=== PATIENT | male | born 1935 | race Caucasian/White ===

== ENCOUNTER → 2016-09-06 | Outpatient (REF) | payer MEDICARE, BC ==
[~2016-09-06] MED LIST: ACET65TA OR; AMLO5TAB2 PO; ASPI325T; ASPI81TA51 PO; CARD180T PO; CIPR500T89 PO; CLAR1TAB2 PO; DIGO0.126 OR; DIGO5EL PO; FLAG500T PO; LASI40TA PO; LISI5TAB PO; LISIPOW PO; LOPR50TA PO; OMEGA 3 FISH OIL PO; PRED15SO PO; PRED1TA PO; PRED25TA PO; PRIL20CA PO; TYLE325T5 PO; WARF5VL PO; ZEST10TA4 PO; enbrel SC
[2016-09-06 21:46] LABS: BASO % 0.4 % (0.0-1.0); EOS % 0.3 % (0.0-3.0); LYMPH # 2.2 K/mm3 (1.5-4.5); LYMPH % 18.6 % (24.0-44.0); MEAN CORPUSCULAR HEMOGLOBIN 31.7 pg (27.0-33.0); MEAN CORPUSCULAR HGB CONC 32.8 g/dl (32.0-36.5); MEAN CORPUSCULAR VOLUME 96.7 fl (80.0-96.0); MONO # 0.4 K/mm3 (0.0-0.8); NEUTROPHILS # 8.1 K/mm3 (1.8-7.7); NEUTROPHILS % 74.8 % (36.0-66.0); RED CELL DISTRIBUTION WIDTH 13.8 % (11.5-14.5); WHITE BLOOD COUNT 10.8 K/mm3 (4.0-10.0)
[2016-09-06 21:58] LABS: ALBUMIN 4.1 GM/DL (3.2-5.2); ALT/SGPT 40 U/L (12-78); AST/SGOT 21 U/L (15-37); CREATININE FOR GFR 1.07 MG/DL (0.70-1.30); GLOMERULAR FILTRATION RATE > 60.0 (>35)
== END ==
LOC: M LABDRWAD 11:41
PROVIDERS: ATTEND Internal Medicine Rheumatology
DX: Z79.899 Other long term (current) drug therapy (principal)

== ENCOUNTER → 2016-10-18 | Outpatient (CLI) | payer MEDICARE, BC ==
--- NOTE | 2016-10-18 17:09 | REP ---
LEFT RIB SERIES: Four views of the left ribs performed and demonstrate no fracture or bone lesion. IMPRESSION: Negative left rib series. Signed by Bryan Amaya MD 10/20/2016 05:09 P
--- NOTE | 2016-10-18 17:11 | REP ---
CHEST, TWO VIEWS: Two views of the chest are performed and compared to prior exams dating back to 09/19/2013. There is mild bibasilar fibrotic scarring without evidence of acute infiltrate or pulmonary edema. The heart is normal in size and there is calcification of the thoracic aorta. The mediastinal silhouette is unchanged. Left dual lead pace maker is noted. There are diffuse degenerative changes of the spine. IMPRESSION: Stable chronic findings without evidence of acute pulmonary disease. Signed by Bryan Amaya MD 10/20/2016 05:09 P
== END ==
LOC: M ADAMS 13:17
PROVIDERS: ATTEND Internal Medicine Rheumatology
DX: M45.0 Ankylosing spondylitis of multiple sites in spine (principal)

== ENCOUNTER → 2016-11-01 | Outpatient (REF) | payer MEDICARE, BC ==
[2016-11-01 12:54] LABS: INR 1.88
== END ==
LOC: M LABDRWAD 12:23
PROVIDERS: ATTEND Dentist Oral and Maxillofacial Surgery
DX: Z51.81 Encounter for therapeutic drug level monitoring (principal); Z79.01 Long term (current) use of anticoagulants

== ENCOUNTER → 2016-11-20 | Outpatient (REF) | payer MEDICARE, BC | LOC: M LABDRWAD 12:25 | PROVIDERS: ATTEND Internal Medicine Rheumatology | DX: M45.0 Ankylosing spondylitis of multiple sites in spine (principal); M35.3 Polymyalgia rheumatica; Z79.899 Other long term (current) drug therapy ==

== ENCOUNTER → 2017-06-04 | Outpatient (CLI) | payer MEDICARE, BC ==
[2017-06-04 12:18] LABS: ALBUMIN 3.8 GM/DL (3.2-5.2); ALBUMIN/GLOBULIN RATIO 1.15 (1.00-1.93); ALKALINE PHOSPHATASE 66 U/L (45-117); ALT/SGPT 61 U/L (12-78); AST/SGOT 42 U/L (7-37); BILIRUBIN,DIRECT 0.1 MG/DL (0.0-0.2); BILIRUBIN,TOTAL 0.5 MG/DL (0.2-1.0); BLOOD UREA NITROGEN 21 MG/DL (7-18); GLOMERULAR FILTRATION RATE > 60.0 (>35); TOTAL PROTEIN 7.1 GM/DL (6.4-8.2)
== END ==
LOC: M SMT 09:27
PROVIDERS: ATTEND Internal Medicine Rheumatology
DX: Z51.81 Encounter for therapeutic drug level monitoring (principal); Z79.899 Other long term (current) drug therapy

== ENCOUNTER → 2017-11-05 | Outpatient (CLI) | payer MEDICARE, BC ==
[2017-11-05 14:02] LABS: BASO # 0.1 10^3/uL (0.0-0.2); BASO % 0.5 % (0.0-1.0); EOS # 0.1 10^3/uL (0.0-0.50); EOS % 0.9 % (0.0-3.0); HEMATOCRIT 42.8 % (42.0-52.0); HEMOGLOBIN 14.3 g/dl (13.5-17.5); IMMATURE GRANULOCYTE % 0.5 % (0-3.0); LYMPH # 1.9 10^3/uL (1.5-4.5); LYMPH % 20.1 % (24.0-44.0); MEAN CORPUSCULAR HEMOGLOBIN 31.4 pg (27.0-33.0); MEAN CORPUSCULAR HGB CONC 33.4 g/dl (32.0-36.5); MEAN CORPUSCULAR VOLUME 94.1 fl (80.0-96.0); MONO % 11.2 % (0.0-5.0); NEUTROPHILS # 6.2 10^3/uL (1.8-7.7); NEUTROPHILS % 66.8 % (36.0-66.0); PLATELET COUNT, AUTOMATED 333 10^3/uL (150-450); RED BLOOD COUNT 4.55 10^6/uL (4.30-6.10); RED CELL DISTRIBUTION WIDTH 14.6 % (11.5-14.5); WHITE BLOOD COUNT 9.3 10^3/uL (4.0-10.0)
[2017-11-05 14:19] LABS: ALBUMIN 4.1 GM/DL (3.2-5.2); ALT/SGPT 86 U/L (12-78); AST/SGOT 49 U/L (7-37); C REACTIVE PROTEIN QUANTITATIV < 0.30 MG/DL (0.00-0.30); CREATININE FOR GFR 0.92 MG/DL (0.70-1.30); GLOMERULAR FILTRATION RATE > 60.0 (>35)
[2017-11-05 14:43] LABS: ERYTHROCYTE SEDIMENTATION RATE 5 mm/hr (0-20)
== END ==
LOC: M SMT 10:33
DX: Z51.81 Encounter for therapeutic drug level monitoring (principal); Z79.899 Other long term (current) drug therapy; M45.0 Ankylosing spondylitis of multiple sites in spine; M35.3 Polymyalgia rheumatica; M35.09 Sjogren syndrome with other organ involvement
CPT/HCPCS: 84460

== ENCOUNTER → 2017-11-26 | Outpatient (CLI) | payer MEDICARE, BC ==
[2017-11-26 13:57] LABS: ALBUMIN 4.1 GM/DL (3.2-5.2); ALBUMIN/GLOBULIN RATIO 1.32 (1.00-1.93); ALKALINE PHOSPHATASE 65 U/L (45-117); ALT/SGPT 86 U/L (12-78); AST/SGOT 48 U/L (7-37); BILIRUBIN,DIRECT 0.2 MG/DL (0.0-0.2); BILIRUBIN,TOTAL 0.5 MG/DL (0.2-1.0); TOTAL PROTEIN 7.2 GM/DL (6.4-8.2)
== END ==
LOC: M SMT 09:20
DX: Z51.81 Encounter for therapeutic drug level monitoring (principal); Z79.899 Other long term (current) drug therapy
CPT/HCPCS: 80076

== ENCOUNTER → 2018-01-07 | Outpatient (CLI) | payer MEDICARE, BC ==
[2018-01-07 14:10] LABS: ALBUMIN 3.9 GM/DL (3.2-5.2); ALBUMIN/GLOBULIN RATIO 1.22 (1.00-1.93); ALKALINE PHOSPHATASE 63 U/L (45-117); ALT/SGPT 67 U/L (12-78); AST/SGOT 45 U/L (7-37); BILIRUBIN,DIRECT 0.2 MG/DL (0.0-0.2); BILIRUBIN,TOTAL 0.5 MG/DL (0.2-1.0); TOTAL PROTEIN 7.1 GM/DL (6.4-8.2)
== END ==
LOC: M SMT 11:00
DX: Z79.899 Other long term (current) drug therapy (principal)
CPT/HCPCS: 80076

== ENCOUNTER → 2018-02-06 | Outpatient (CLI) | payer MEDICARE, BC ==
[2018-02-06 10:25] LABS: INR 2.06; PARTIAL THROMBOPLASTIN TIME 29.7 SECONDS (25.4-37.6); PROTHROMBIN TIME 23.6 SECONDS (12.1-14.4)
== END ==
LOC: M SMT 07:56
DX: Z01.812 Encounter for preprocedural laboratory examination (principal); Z79.01 Long term (current) use of anticoagulants; Z79.02 Long term (current) use of antithrombotics/antiplatelets
CPT/HCPCS: 85610

== ENCOUNTER → 2018-03-06 | Outpatient (CLI) | payer MEDICARE, BC ==
[2018-03-06 10:35] LABS: INR 1.33; PROTHROMBIN TIME 16.7 SECONDS (12.1-14.4)
== END ==
LOC: M SMT 08:22
DX: Z51.81 Encounter for therapeutic drug level monitoring (principal); Z79.01 Long term (current) use of anticoagulants

== ENCOUNTER → 2018-03-06 | Outpatient (CLI) | payer MEDICARE, BC ==
[2018-03-06 10:27] LABS: BASO # 0.1 10^3/uL (0.0-0.2); BASO % 0.6 % (0.0-1.0); EOS # 0.1 10^3/uL (0.0-0.50); EOS % 0.7 % (0.0-3.0); HEMATOCRIT 42.2 % (42.0-52.0); HEMOGLOBIN 14.2 g/dl (13.5-17.5); IMMATURE GRANULOCYTE # 0.1 10^3/uL (0-0); IMMATURE GRANULOCYTE % 0.6 % (0-3.0); LYMPH % 22.7 % (24.0-44.0); MEAN CORPUSCULAR HEMOGLOBIN 31.8 pg (27.0-33.0); MEAN CORPUSCULAR HGB CONC 33.6 g/dl (32.0-36.5); MEAN CORPUSCULAR VOLUME 94.6 fl (80.0-96.0); MONO # 0.5 10^3/uL (0.0-0.8); MONO % 5.3 % (0.0-5.0); NEUTROPHILS # 6.1 10^3/uL (1.8-7.7); NEUTROPHILS % 70.1 % (36.0-66.0); PLATELET COUNT, AUTOMATED 330 10^3/uL (150-450); RED BLOOD COUNT 4.46 10^6/uL (4.30-6.10); RED CELL DISTRIBUTION WIDTH 14.2 % (11.5-14.5); WHITE BLOOD COUNT 8.7 10^3/uL (4.0-10.0)
[2018-03-06 10:57] LABS: ALBUMIN 3.9 GM/DL (3.2-5.2); ALT/SGPT 59 U/L (12-78); AST/SGOT 39 U/L (7-37); C REACTIVE PROTEIN QUANTITATIV < 0.30 MG/DL (0.00-0.30); CREATININE FOR GFR 0.98 MG/DL (0.70-1.30); GLOMERULAR FILTRATION RATE > 60.0 (>35)
[2018-03-06 11:01] LABS: ERYTHROCYTE SEDIMENTATION RATE 4 mm/hr (0-20)
== END ==
LOC: M SMT 08:26
DX: M45.0 Ankylosing spondylitis of multiple sites in spine (principal); M35.3 Polymyalgia rheumatica; Z51.81 Encounter for therapeutic drug level monitoring; Z79.01 Long term (current) use of anticoagulants; Z79.899 Other long term (current) drug therapy
CPT/HCPCS: 84460

== ENCOUNTER → 2018-03-12 | Outpatient (CLI) | payer MEDICARE, BC ==
[2018-03-12 13:57] LABS: DIGOXIN LEVEL 1.7 NG/ML (0.5-2.0)
== END ==
LOC: M SMT 10:08
DX: Z79.899 Other long term (current) drug therapy (principal)
CPT/HCPCS: 80162

== ENCOUNTER 2018-04-25 13:22 | Observation (INO) | payer MEDICARE, BC ==
[2018-04-25] MEDS: **hydrALAZINE HCL** 25 MG TAB PO ×4 (14:00→22:00)
[2018-04-25 14:56] LABS: VENOUS BASE EXCESS 0.7 (-2.0-2.0); VENOUS HCO3 26.8 MEQ/L (23.0-27.0); VENOUS O2 SATURATION 63.5 % (60.0-80.0); VENOUS PARTIAL PRESSURE CO2 48.6 mmHg (38.0-50.0); VENOUS PARTIAL PRESSURE O2 32.4 mmHg (30.0-50.0); VENOUS STANDARD HCO3 24.3 MEQ/L; VENOUS TOTAL CO2 28.3 MEQ/L (24.0-28.0)
[2018-04-25 15:02] LABS: KETONE, URINE AUTO RFX NEGATIVE (NEGATIVE); LEUKOCYTE ESTERASE UR AUTO RFX NEGATIVE (NEGATIVE); MUCUS, URINE RFX SMALL (NEGATIVE); NITRITE, URINE AUTO RFX NEGATIVE (NEGATIVE); RBC, URINE AUTO RFX 2 /HPF (0-3); SPECIFIC GRAVITY UR AUTO RFX 1.017 (1.002-1.035); SQUAM EPITHELIAL CELL UR AURFX 0 /HPF (0-6); WBC, URINE AUTO RFX 1 /HPF (0-3)
[2018-04-25 15:07] LABS: AMMONIA 18 uMOL/L (<32)
[2018-04-25 15:13] LABS: LACTIC ACID SEPSIS PROTOCOL 2.8 MMOL/L (0.4-2.0)
[2018-04-25 15:36] LABS: BASO # 0.1 10^3/uL (0.0-0.2); BASO % 0.6 % (0.0-1.0); EOS % 0.2 % (0.0-3.0); HEMATOCRIT 42.6 % (42.0-52.0); HEMOGLOBIN 14.1 g/dl (13.5-17.5); IMMATURE GRANULOCYTE % 1.9 % (0-3.0); LYMPH # 1.6 10^3/uL (1.5-4.5); LYMPH % 13.8 % (24.0-44.0); MEAN CORPUSCULAR HEMOGLOBIN 32.3 pg (27.0-33.0); MEAN CORPUSCULAR HGB CONC 33.1 g/dl (32.0-36.5); MEAN CORPUSCULAR VOLUME 97.5 fl (80.0-96.0); MONO # 0.6 10^3/uL (0.0-0.8); MONO % 5.3 % (0.0-5.0); NEUTROPHILS # 8.9 10^3/uL (1.8-7.7); NEUTROPHILS % 78.2 % (36.0-66.0); PLATELET COUNT, AUTOMATED 315 10^3/uL (150-450); RED BLOOD COUNT 4.37 10^6/uL (4.30-6.10); RED CELL DISTRIBUTION WIDTH 14.6 % (11.5-14.5); WHITE BLOOD COUNT 11.4 10^3/uL (4.0-10.0)
[2018-04-25 15:53] LABS: ALBUMIN 3.6 GM/DL (3.2-5.2); ALBUMIN/GLOBULIN RATIO 1.24 (1.00-1.93); ALKALINE PHOSPHATASE 59 U/L (45-117); ALT/SGPT 63 U/L (12-78); ANION GAP 8 MEQ/L (8-16); AST/SGOT 40 U/L (7-37); BILIRUBIN,DIRECT 0.1 MG/DL (0.0-0.2); BILIRUBIN,TOTAL 0.5 MG/DL (0.2-1.0); BLOOD UREA NITROGEN 22 MG/DL (7-18); CALCIUM LEVEL 9.5 MG/DL (8.8-10.2); CARBON DIOXIDE LEVEL 28 MEQ/L (21-32); CHLORIDE LEVEL 102 MEQ/L (98-107); CPK CREATINE PHOSPHOKINASE 73 U/L (39-308); CREATININE FOR GFR 1.36 MG/DL (0.70-1.30); GLOMERULAR FILTRATION RATE 53.3 (>35); GLUCOSE, FASTING 176 MG/DL (70-100); MB/CK RELATIVE INDEX 6.85 (< OR =4); POTASSIUM SERUM 4.5 MEQ/L (3.5-5.1); SODIUM LEVEL 138 MEQ/L (136-145); TOTAL PROTEIN 6.5 GM/DL (6.4-8.2); TROPONIN I 0.02 NG/ML (< 0.10)
[2018-04-25] MEDS: NS 1,000 ML IV ×4 (16:09→17:45)
[2018-04-25 16:21] LABS: PROTHROMBIN TIME 30.1 SECONDS (12.1-14.4)
[2018-04-25 16:42] LABS: DIGOXIN LEVEL 1.5 NG/ML (0.5-2.0)
[2018-04-25 16:48] LABS: ERYTHROCYTE SEDIMENTATION RATE 5 mm/hr (0-20)
[2018-04-25] MEDS ORDERED: PILL CRUSHER/CUTTER 1 EACH XX ×2 (17:30)
[2018-04-25] MEDS: ASPIRIN 325 MG TAB PO ×2 (17:30)
[2018-04-25 21:01] LABS: C REACTIVE PROTEIN QUANTITATIV < 0.30 MG/DL (0.00-0.30)
[2018-04-25] MEDS: SODIUM CHLORIDE 0.9% 1000ML IV ×2 (21:58)
[2018-04-25] MEDS: DIGOXIN INJ 0.5 MG/2 ML AMP (J1160) IV ×2 (21:59)
[2018-04-25] MEDS ORDERED: HEPARIN SOD (PORCINE) 5000 UNITS/ML VIAL SC ×2 (22:00)
[2018-04-25] MEDS: ACETAMINOPHEN TAB 650MG DOSE (2X325MG) PO ×2 (22:00)
[2018-04-25] MEDS: OMEPRAZOLE 20 MG CAP PO ×2 (22:01)
[2018-04-25] MEDS: FOLIC ACID 1 MG TAB PO ×2 (22:01)
[2018-04-25] MEDS: predniSONE 10 MG TAB PO ×2 (22:01)
[2018-04-26 01:22] LABS: LACTIC ACID SEPSIS PROTOCOL 2.3 MMOL/L (0.4-2.0)
[2018-04-26 04:47] LABS: HEMATOCRIT 38.1 % (42.0-52.0); HEMOGLOBIN 12.6 g/dl (13.5-17.5); MEAN CORPUSCULAR HEMOGLOBIN 32.1 pg (27.0-33.0); MEAN CORPUSCULAR HGB CONC 33.1 g/dl (32.0-36.5); MEAN CORPUSCULAR VOLUME 96.9 fl (80.0-96.0); PLATELET COUNT, AUTOMATED 244 10^3/uL (150-450); RED BLOOD COUNT 3.93 10^6/uL (4.30-6.10); RED CELL DISTRIBUTION WIDTH 14.5 % (11.5-14.5); WHITE BLOOD COUNT 8.8 10^3/uL (4.0-10.0)
[2018-04-26 05:16] LABS: ANION GAP 6 MEQ/L (8-16); BLOOD UREA NITROGEN 17 MG/DL (7-18); CALCIUM LEVEL 8.6 MG/DL (8.8-10.2); CARBON DIOXIDE LEVEL 25 MEQ/L (21-32); CHLORIDE LEVEL 110 MEQ/L (98-107); CHOLESTEROL LEVEL 219 MG/DL (<200); CHOLESTEROL RISK RATIO 4.469 (<5); CREATININE FOR GFR 0.96 MG/DL (0.70-1.30); GLOMERULAR FILTRATION RATE > 60.0 (>35); GLUCOSE, FASTING 155 MG/DL (70-100); HDL CHOLESTEROL 49 MG/DL (>40); LDL CHOLESTEROL 129 MG/DL (<100); MAGNESIUM LEVEL 2.1 MG/DL (1.8-2.4); NON-HDL-C 170 MG/DL; POTASSIUM SERUM 4.9 MEQ/L (3.5-5.1); SODIUM LEVEL 141 MEQ/L (136-145); TRIGLYCERIDES LEVEL 205 MG/DL (<150)
[2018-04-26] MEDS ORDERED: NS 1,000 ML IV ×2 (05:45)
[2018-04-26] MEDS: **hydrALAZINE HCL** 25 MG TAB PO ×2 (06:00)
[2018-04-26] MEDS: ASCORBIC ACID 500 MG TAB PO ×2 (08:04)
[2018-04-26] MEDS: MAGNESIUM OXIDE 400 MG TAB (MAG-OX) PO ×2 (08:05)
[2018-04-26] MEDS: LISINOPRIL 10 MG TAB PO ×4 (08:05→21:40)
[2018-04-26] MEDS: DIGOXIN 0.125 MG TAB PO ×4 (08:05→21:38)
[2018-04-26] MEDS: predniSONE 5 MG TAB PO ×2 (08:05)
[2018-04-26] MEDS: CYANOCOBALAMIN 500 MCG TAB PO ×2 (08:06)
[2018-04-26] MEDS: VITAMIN D 1,000 INTERNATIONAL UNITS TABLET PO ×2 (08:06)
[2018-04-26] MEDS: FOLIC ACID 1 MG TAB PO ×4 (08:06→21:38)
[2018-04-26 08:28] LABS: INR 2.61; PROTHROMBIN TIME 28.5 SECONDS (12.1-14.4)
[2018-04-26] MEDS ORDERED: ISOVUE-370 76% 100ML VIAL (Q9967) As Ordered ×2 (10:41)
[2018-04-26] MEDS: NS 1,000 ML IV ×2 (11:52)
[2018-04-26] MEDS: WARFARIN SOD 2.5 MG TAB PO ×2 (17:12)
[2018-04-26] MEDS: predniSONE 10 MG TAB PO ×2 (21:37)
[2018-04-26] MEDS: OMEPRAZOLE 20 MG CAP PO ×2 (21:38)
[2018-04-27 05:37] LABS: HEMATOCRIT 37.5 % (42.0-52.0); HEMOGLOBIN 12.3 g/dl (13.5-17.5); MEAN CORPUSCULAR HGB CONC 32.8 g/dl (32.0-36.5); MEAN CORPUSCULAR VOLUME 97.7 fl (80.0-96.0); PLATELET COUNT, AUTOMATED 249 10^3/uL (150-450); RED BLOOD COUNT 3.84 10^6/uL (4.30-6.10); RED CELL DISTRIBUTION WIDTH 14.9 % (11.5-14.5); WHITE BLOOD COUNT 8.5 10^3/uL (4.0-10.0)
[2018-04-27 05:44] LABS: INR 2.15; PROTHROMBIN TIME 24.4 SECONDS (12.1-14.4)
[2018-04-27 06:41] LABS: ANION GAP 7 MEQ/L (8-16); BLOOD UREA NITROGEN 22 MG/DL (7-18); CALCIUM LEVEL 9.1 MG/DL (8.8-10.2); CARBON DIOXIDE LEVEL 26 MEQ/L (21-32); CHLORIDE LEVEL 110 MEQ/L (98-107); CREATININE FOR GFR 1.04 MG/DL (0.70-1.30); GLOMERULAR FILTRATION RATE > 60.0 (>35); GLUCOSE, FASTING 151 MG/DL (70-100); POTASSIUM SERUM 4.5 MEQ/L (3.5-5.1); SODIUM LEVEL 143 MEQ/L (136-145)
[2018-04-27] MEDS: VITAMIN D 1,000 INTERNATIONAL UNITS TABLET PO ×2 (09:38)
[2018-04-27] MEDS: FOLIC ACID 1 MG TAB PO ×2 (09:39)
[2018-04-27] MEDS: LISINOPRIL 10 MG TAB PO ×2 (09:39)
[2018-04-27] MEDS: ASCORBIC ACID 500 MG TAB PO ×2 (09:39)
[2018-04-27] MEDS: MAGNESIUM OXIDE 400 MG TAB (MAG-OX) PO ×2 (09:39)
[2018-04-27] MEDS: DIGOXIN 0.125 MG TAB PO ×2 (09:39)
[2018-04-27] MEDS: predniSONE 5 MG TAB PO ×2 (09:40)
[2018-04-27] MEDS: CYANOCOBALAMIN 500 MCG TAB PO ×2 (09:40)
== END 2018-04-27 14:45 | disposition home or self-care (01) ==
LOC: M ED 13:22 → M ED INP 16:53 → M PCU 20:46
DX: R41.82 Altered mental status, unspecified (principal); G45.4 Transient global amnesia; M35.3 Polymyalgia rheumatica; N17.9 Acute kidney failure, unspecified; I25.10 Atherosclerotic heart disease of native coronary artery without angina pectoris; E78.5 Hyperlipidemia, unspecified; K21.9 Gastro-esophageal reflux disease without esophagitis; I10 Essential (primary) hypertension; I67.82 Cerebral ischemia; R74.0 Nonspecific elevation of levels of transaminase and lactic acid dehydrogenase [LDH]; Z86.711 Personal history of pulmonary embolism; Z86.718 Personal history of other venous thrombosis and embolism; Z95.5 Presence of coronary angioplasty implant and graft; Z95.0 Presence of cardiac pacemaker; Z85.46 Personal history of malignant neoplasm of prostate; M45.9 Ankylosing spondylitis of unspecified sites in spine; M19.90 Unspecified osteoarthritis, unspecified site; I48.91 Unspecified atrial fibrillation; Z88.8 Allergy status to other drugs, medicaments and biological substances; Z88.5 Allergy status to narcotic agent; Z79.899 Other long term (current) drug therapy; Z79.52 Long term (current) use of systemic steroids; Z79.01 Long term (current) use of anticoagulants
CPT/HCPCS: Q9967

== ENCOUNTER → 2018-05-07 | Outpatient (REF) | payer MEDICARE, BC ==
[2018-05-07 18:14] LABS: FREE T4 1.06 NG/DL (0.76-1.46); FREE THYROXINE INDEX 2.8 % (1.4-3.8); RHEUMATOID FACTOR QUANT < 10.0 IU/ML (<15.0); T UPTAKE 31 % (33-40); TOTAL PROTEIN 7.4 GM/DL (6.4-8.2)
[2018-05-07 18:15] LABS: FOLATE > 24.0 NG/ML; VITAMIN B12 LEVEL 779 PG/ML
[2018-05-07 19:05] LABS: ERYTHROCYTE SEDIMENTATION RATE 8 mm/hr (0-20)
[2018-05-07 19:09] LABS: ESTIMATED AVERAGE GLUCOSE 137 MG/DL (60-110); HEMOGLOBIN A1c 6.4 %
[2018-05-08 08:11] LABS: ALBUMIN 4.57 GM/DL (3.29-5.55); ALBUMIN % 61.7 % (55.8-66.1); ALPHA-1-GLOBULIN % 4.4 % (2.9-4.9); ALPHA-1-GLOBULINS 0.33 GM/DL (0.17-0.41); ALPHA-2-GLOBULINS 0.85 GM/DL (0.42-0.99); ALPHA-2-GLOBULINS % 11.5 % (7.1-11.8); BETA-1-GLOBULINS 0.46 GM/DL (0.28-0.60); BETA-1-GLOBULINS % 6.2 % (4.7-7.2); BETA-2-GLOBULINS 0.41 GM/DL (0.19-0.55); BETA-2-GLOBULINS % 5.5 % (3.2-6.5); GAMMA GLOBULIN % 10.7 % (11.1-18.8); GAMMA GLOBULINS 0.79 GM/DL (0.65-1.58)
[2018-05-13 10:08] LABS: ANTINUCLEAR ANTIBODIES DIRECT Negative (Negative); Methylmalonic Acid 170 nmol/L (0-378); SJOGREN'S ANTI SS-A <0.2 AI (0.0-0.9); SJOGREN'S ANTI SS-B <0.2 AI (0.0-0.9); VITAMIN B1 LEVEL WHOLE BLOOD 155.4 nmol/L (66.5-200.0); VITAMIN B6,PYRIDOXAL PHOSPHATE 4.9 ug/L (5.3-46.7); VITAMIN E(ALPHA TOCOPHEROL) 14.9 mg/L (9.0-29.0); VITAMIN E(GAMMA TOCOPHEROL) 2.1 mg/L (0.5-4.9)
== END ==
LOC: M LABNEURO 11:42
DX: E11.9 Type 2 diabetes mellitus without complications (principal); E07.9 Disorder of thyroid, unspecified
CPT/HCPCS: 82746

== ENCOUNTER → 2018-10-23 | Outpatient (CLI) | payer MEDICARE, BC ==
[~2018-10-23] MED LIST changes: +ASCO500T PO; +B-12100010 PO; +COUM1TAB17 PO; +CYCL5TAB PO; +DIGO0.12 PO; +FIBE625T PO; +FOLI800C PO; +GENT1SOL16 OU; +HUMI20IN SC; +HUMI20KI SC; +HUMI40IN SC; +HUMI40KI2 SC; +LISI10TA4 PO; +MAGN1TAB26 PO; +MAGN400C PO; +METH2.5T48 PO; +OMEP20CA3 PO; +PRED5TA PO; +VITA100018 PO; +VITA200038 PO; +VITA400T PO; +WARF-18 PO
== END ==
LOC: M SMT 09:56
DX: M35.3 Polymyalgia rheumatica (principal)

== ENCOUNTER 2019-01-30 23:35 | Emergency (ER) | payer MEDICARE, BC ==
[~2019-01-30] VITALS: Ht 175.3 cm; Wt 84.1 kg
[~2019-01-30 23:35] MED LIST changes: -OMEP20CA3 PO; +OMEP20CA4 PO
[2019-01-31] MEDS ORDERED: NS 1,000 ML IV ONE (00:15)
[2019-01-31 01:38] LABS: BASO # 0.1 10^3/uL (0.0-0.2); BASO % 0.5 % (0.0-1.0); EOS % 0.1 % (0.0-3.0); HEMATOCRIT 36.2 % (42.0-52.0); HEMOGLOBIN 12.2 g/dl (13.5-17.5); LYMPH # 1.4 10^3/uL (1.5-4.5); LYMPH % 15.3 % (24.0-44.0); MEAN CORPUSCULAR HEMOGLOBIN 31.5 pg (27.0-33.0); MEAN CORPUSCULAR HGB CONC 33.7 g/dl (32.0-36.5); MEAN CORPUSCULAR VOLUME 93.5 fl (80.0-96.0); MONO # 0.5 10^3/uL (0.0-0.8); MONO % 5.8 % (0.0-5.0); NEUTROPHILS # 7.1 10^3/uL (1.8-7.7); NEUTROPHILS % 77.2 % (36.0-66.0); PLATELET COUNT, AUTOMATED 278 10^3/uL (150-450); RED BLOOD COUNT 3.87 10^6/uL (4.30-6.10); WHITE BLOOD COUNT 9.2 10^3/uL (4.0-10.0)
[2019-01-31 01:52] LABS: PROTHROMBIN TIME 22.5 SECONDS (11.8-14.0)
--- NOTE | 2019-01-31 01:52 | REPVR ---
EXAM: CT Head Without Contrast EXAM DATE/TIME: 01/31/2019 12:35 AM CLINICAL HISTORY: 83 years old, male; Syncope and collapse TECHNIQUE: Imaging protocol: Computed tomography images of the head without contrast. Radiation optimization: All CT scans at this facility use at least one of these dose optimization techniques: automated exposure control; mA and/or kV adjustment per patient size (includes targeted exams where dose is matched to clinical indication); or iterative reconstruction. COMPARISON: CT Head without contrast 04/26/2018 11:06 AM FINDINGS: Brain: No acute intracranial hemorrhage or mass effect. No discrete geographic area of hypoattenuation to suggest large vessel territorial infarct identified at this time. Moderately advanced generalized involutional and deep white matter microvascular ischemic changes. Ventricles: Mild dilatation which is consistent with degree of volume loss. Bones/joints: No acute fracture. Sinuses: Visualized sinuses are unremarkable. No fluid levels. Mastoid air cells: Visualized mastoid air cells are well aerated. No mastoid effusion. Soft tissues: Grossly stable appearance of mucosal thickening and soft tissue densities in the nasal passage most consistent with polyps. Vasculature: Cerebrovascular calcifications noted. IMPRESSION: No acute intracranial abnormality. Other findings, as above, appear relatively stable when compared to prior study. Electronically signed by: Alton Lo On 01/31/2019 01:52:52 AM
[2019-01-31 01:53] LABS: PARTIAL THROMBOPLASTIN TIME 26.9 SECONDS (25.0-38.4)
[2019-01-31 03:06] LABS: BLOOD UREA NITROGEN 26 MG/DL (7-18); CREATININE FOR GFR 1.07 MG/DL (0.70-1.30); GLOMERULAR FILTRATION RATE > 60.0 (>35); GLUCOSE, FASTING 148 MG/DL (70-100)
[2019-01-31 03:07] LABS: CALCIUM LEVEL 9.3 MG/DL (8.8-10.2); CARBON DIOXIDE LEVEL 25 MEQ/L (21-32); CHLORIDE LEVEL 108 MEQ/L (98-107); POTASSIUM SERUM 4.5 MEQ/L (3.5-5.1); SODIUM LEVEL 142 MEQ/L (136-145)
[2019-01-31 03:08] LABS: CK-MB VALUE MASS 3.4 NG/ML (<3.6); CPK CREATINE PHOSPHOKINASE 169 U/L (39-308); MB/CK RELATIVE INDEX 2.01 (< OR =4)
[2019-01-31 03:09] LABS: DIGOXIN LEVEL 2.2 NG/ML (0.5-2.0); MAGNESIUM LEVEL 2.3 MG/DL (1.8-2.4); TROPONIN I 0.03 NG/ML (< 0.10)
[2019-01-31 05:48] VITALS: BP 156/81
--- NOTE | 2019-01-31 07:20 | ECGEPIP ---
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
== END 2019-01-31 05:55 | disposition home or self-care (01) ==
LOC: M ED 23:35
DX: E86.0 Dehydration (principal); Z95.0 Presence of cardiac pacemaker; Z79.01 Long term (current) use of anticoagulants; Z79.899 Other long term (current) drug therapy; Z88.8 Allergy status to other drugs, medicaments and biological substances; Z88.5 Allergy status to narcotic agent

== ENCOUNTER → 2019-03-22 | Outpatient (CLI) | payer MEDICARE, BC ==
--- NOTE | 2019-03-24 12:03 | REP ---
CT LUMBAR SPINE WITHOUT CONTRAST: HISTORY: Spondylosis in the lumbar region. Low back pain and paresthesias of the skin. Comparison is made with images from January 14, 2016 CT abdomen and pelvis. CT FINDINGS: There is diffuse osteopenia. Lumbar vertebral body heights are preserved. There is calcification of the anterior longitudinal ligament with bridging syndesmophytes in the lumbar spine at each level above the L3-4. There is some bridging osteophytes involving the posterior elements as well. The sacroiliac joints are fused and the findings are compatible with ankylosing spondylitis. Rigid spine. There is diffuse osteoporosis. Lumbar vertebral body heights are preserved. There is no evidence of spondylolysis. There is mild discogenic spurring and vacuum phenomenon at the L4-5 disc space. There is diffuse disc bulging at L4-5. This combined with ligamentum flavum hypertrophy and facet hypertrophy produces moderate central canal stenosis at the L4-5 level. There is foraminal encroachment due to facet hypertrophy and disc bulging bilaterally at L4-5. At L5-S1, there is minimal diffuse disc bulging. Moderate facet hypertrophy is present bilaterally. There is mild right-sided foraminal encroachment due to facet hypertrophy. At L3-4, there is some facet and mild ligamentum flavum hypertrophy. Borderline canal size. No foraminal encroachment is seen. At L2-3 and L1-2 there is no disc abnormality. IMPRESSION: Findings consistent with ankylosing spondylitis of the lumbar spine with ankylosis of each disc level above the L4 vertebral body. SI joints are ankylosed. There is degenerative disc and facet disease at L4-5 and there is moderate central canal stenosis at L4-5 due to diffuse disc bulging, ligamentum flavum hypertrophy, and facet hypertrophy. There is foraminal narrowing bilaterally at L4-5 and on the right at the L5-S1. Electronically Signed by Dwayne Lee MD 03/24/2019 03:04 P
== END ==
LOC: M RAD 10:19
PROVIDERS: ATTEND Psychiatry & Neurology Neurology
DX: M54.5 Low back pain (principal)

== ENCOUNTER → 2019-07-31 | Outpatient (CLI) | payer MEDICARE, BC ==
[~2019-07-31] MED LIST changes: -DIGO0.12 PO; +DIGO0.123 PO; +OMEP1CAP73 PO; -OMEP20CA4 PO
[2019-07-31 10:02] LABS: BASO # 0.1 10^3/uL (0.0-0.2); BASO % 0.6 % (0.0-1.0); EOS # 0.1 10^3/uL (0.0-0.5); EOS % 0.5 % (0.0-3.0); HEMATOCRIT 47.2 % (42.0-52.0); HEMOGLOBIN 14.9 g/dl (13.5-17.5); LYMPH % 18.5 % (24.0-44.0); MEAN CORPUSCULAR HEMOGLOBIN 30.7 pg (27.0-33.0); MEAN CORPUSCULAR HGB CONC 31.6 g/dl (32.0-36.5); MEAN CORPUSCULAR VOLUME 97.3 fl (80.0-96.0); MONO # 0.5 10^3/uL (0.0-0.8); MONO % 4.7 % (0.0-5.0); NEUTROPHILS # 8.1 10^3/uL (1.5-8.5); PLATELET COUNT, AUTOMATED 326 10^3/uL (150-450); RED BLOOD COUNT 4.85 10^6/uL (4.30-6.10); WHITE BLOOD COUNT 10.8 10^3/uL (4.0-10.0)
[2019-07-31 10:27] LABS: ALBUMIN 4.2 GM/DL (3.2-5.2); ALT/SGPT 54 U/L (12-78); C REACTIVE PROTEIN QUANTITATIV < 0.30 MG/DL (0.00-0.30); CREATININE FOR GFR 0.91 MG/DL (0.70-1.30); ERYTHROCYTE SEDIMENTATION RATE 4 mm/hr (0-20); GLOMERULAR FILTRATION RATE > 60.0 (>35)
== END ==
LOC: M PLALAB 08:26
PROVIDERS: ATTEND Internal Medicine Rheumatology
DX: Z51.81 Encounter for therapeutic drug level monitoring (principal); Z79.899 Other long term (current) drug therapy; M45.0 Ankylosing spondylitis of multiple sites in spine; M35.3 Polymyalgia rheumatica; M13.0 Polyarthritis, unspecified; Z79.52 Long term (current) use of systemic steroids

== ENCOUNTER 2019-11-22 02:48 | Emergency (ER) | payer MEDICARE, BC ==
[~2019-11-22] VITALS: Ht 175.3 cm; Wt 81.2 kg
[2019-11-22 03:35] LABS: BASO # 0.1 10^3/uL (0.0-0.2); BASO % 0.8 % (0.0-1.0); EOS % 0.3 % (0.0-3.0); HEMATOCRIT 42.8 % (42.0-52.0); HEMOGLOBIN 13.9 g/dl (13.5-17.5); LYMPH # 2.7 10^3/uL (1.5-5.0); LYMPH % 31.5 % (24.0-44.0); MEAN CORPUSCULAR HEMOGLOBIN 30.9 pg (27.0-33.0); MEAN CORPUSCULAR HGB CONC 32.5 g/dl (32.0-36.5); MEAN CORPUSCULAR VOLUME 95.1 fl (80.0-96.0); MONO # 0.8 10^3/uL (0.0-0.8); MONO % 9.1 % (0.0-5.0); NEUTROPHILS % 57.8 % (36.0-66.0); PLATELET COUNT, AUTOMATED 284 10^3/uL (150-450); WHITE BLOOD COUNT 8.7 10^3/uL (4.0-10.0)
[2019-11-22 03:46] LABS: INR 2.02; PARTIAL THROMBOPLASTIN TIME 27.3 SECONDS (25.0-38.4); PROTHROMBIN TIME 22.6 SECONDS (11.8-14.0)
[2019-11-22 04:05] LABS: BILIRUBIN,DIRECT 0.1 MG/DL (0.0-0.2); BILIRUBIN,TOTAL 0.6 MG/DL (0.2-1.0); CALCIUM LEVEL 9.4 MG/DL (8.8-10.2); CREATININE FOR GFR 1.4 MG/DL (0.70-1.30); GLOMERULAR FILTRATION RATE 51.3 (>35); POTASSIUM SERUM 4.2 MEQ/L (3.5-5.1)
[2019-11-22] MEDS ORDERED: NS 500 ML IV ONE (04:15)
[2019-11-22] MEDS ORDERED: ISOVUE-370 76% 100ML VIAL As Ordered ONE (04:16)
--- NOTE | 2019-11-22 05:16 | REPVR ---
PROCEDURE INFORMATION: Exam: CT Abdomen And Pelvis With Contrast Exam date and time: 11/22/2019 4:06 AM Age: 84 years old Clinical indication: Abdominal pain; Generalized; Prior surgery; Surgery date: 6+ months; Surgery type: Prostatectomy; Additional info: Generalized abd pain/hematuria TECHNIQUE: Imaging protocol: Computed tomography of the abdomen and pelvis with intravenous contrast. Radiation optimization: All CT scans at this facility use at least one of these dose optimization techniques: automated exposure control; mA and/or kV adjustment per patient size (includes targeted exams where dose is matched to clinical indication); or iterative reconstruction. Contrast material: ISO; Contrast volume: 100 ml; Contrast route: AC; COMPARISON: CT ABD PELVIS W/O CONTRAST 01/14/2016 2:07 AM FINDINGS: Lungs: There is mild cylindrical bronchiectasis at the lung bases with atelectatic changes, left more than right. Liver: The liver is hypoattenuated. Gallbladder and bile ducts: The patient is status post cholecystectomy. Pancreas: The pancreatic duct is dilated measuring 5-6 mm with heterogeneous appearance of the pancreatic head. Spleen: Normal. No splenomegaly. Adrenals: Normal. No mass. Kidneys and ureters: There is a punctate 1-2 mm stone at the right UVJ with mild proximal hydronephrosis. There is a 2 mm right upper renal pole stone. There is 2-3 mm left lower renal pole stone. There is a 9 mm left lower renal pole cortical cyst. Stomach and bowel: There is sigmoid colon diverticulosis. The descending colon is under distended limiting its evaluation wall thickening. Appendix: No evidence of appendicitis. Intraperitoneal space: See "Soft tissues" finding. Vasculature: There is moderate aortic and iliac mural calcifications. Lymph nodes: Unremarkable. No enlarged lymph nodes. Bladder: Unremarkable as visualized. Reproductive: The patient is status post prostatectomy with no mass or fluid collection in the prostate bed. Bones/joints: There is marked diffuse bony osteopenia. There is marked diffuse lumbar spine facet arthrosis. Soft tissues: There is bilateral mild right more than left fat containing inguinal hernias. There appears to be some fluid in the right scrotal sac. IMPRESSION: 1. Punctate 1-2 mm right UVJ stone with mild proximal hydronephrosis. 2. Small bilateral renal stones. 3. 9 mm left lower renal pole simple appearing cyst. No follow-up is necessary. 4. Status post cholecystectomy and prostatectomy. 5. Heterogeneous pancreatic head with dilated pancreatic duct up to 6 mm. MRI of the pancreas without and with IV contrast is recommended to exclude underlying neoplastic process. 6. Sigmoid colon diverticulosis. 7. Small bilateral, right more than left fat containing inguinal hernias with small amount of fluid in the right scrotal sac/hydrocele. COMMENTS: Consistent with the [employer]'s Incidental Findings Committee white paper (J Am Kendall Radiol 2018): Any incidental renal lesion less than 1.0 cm or classified as too small to characterize, or any incidental cystic renal lesion characterized as simple-appearing, is likely benign. No follow-up imaging is recommended for these lesions per consensus recommendations based on imaging criteria. Electronically signed by: Perez Cabrera On 11/22/2019 05:15:46 AM
[2019-11-22] MEDS ORDERED: TAMSULOSIN 0.4 MG CAP PO ONE (05:30)
[2019-11-22] MEDS ORDERED: FLOM0.4C39 PO (05:30)
[2019-11-22] MEDS ORDERED: KETOROLAC 30 MG/ML 1ML VIAL IV ONE (05:30)
[2019-11-22 05:49] VITALS: BP 162/76
--- NOTE | 2019-11-22 06:34 | ED PDOC ---
Post-Departure Follow-Up [facility] FAXED FORMAL REPORT OF CT ABD/P FOR FU Brenda Queen MD Nov 22, 2019 06:34
== END 2019-11-22 05:51 | disposition home or self-care (01) ==
LOC: M ED 02:48
DX: N20.1 Calculus of ureter (principal); K86.9 Disease of pancreas, unspecified; I10 Essential (primary) hypertension; I48.91 Unspecified atrial fibrillation; K21.9 Gastro-esophageal reflux disease without esophagitis; E78.5 Hyperlipidemia, unspecified; M35.3 Polymyalgia rheumatica; M45.9 Ankylosing spondylitis of unspecified sites in spine; Z85.46 Personal history of malignant neoplasm of prostate; Z95.0 Presence of cardiac pacemaker; Z79.899 Other long term (current) drug therapy; Z79.01 Long term (current) use of anticoagulants; Z79.52 Long term (current) use of systemic steroids; Z88.8 Allergy status to other drugs, medicaments and biological substances; Z88.5 Allergy status to narcotic agent
CPT/HCPCS: 74177; 80048; 80076; 81001; 83690; 85025; 85610; 85730; 96374; 99284; J1885; Q9967

== ENCOUNTER → 2019-12-31 | Outpatient (CLI) | payer MEDICARE, BC ==
[~2019-12-31] MED LIST changes: +D31000TA2 PO; +DIGO0.253 PO; +ETAN50SY SC; +EZET10TA21 PO; +FLOM0.4C39 PO; +LISI-542 PO; +OXYC1TAB23 PO; +PILO1OPD OD; +PRED10TA2 PO
[2019-12-31 15:33] LABS: ALBUMIN 3.7 GM/DL (3.2-5.2); BILIRUBIN,DIRECT 0.1 MG/DL (0.0-0.2); BILIRUBIN,TOTAL 0.5 MG/DL (0.2-1.0); TOTAL PROTEIN 6.8 GM/DL (6.4-8.2)
[2020-01-02 11:45] LABS: CA19-9 TUMOR MARKER,CARBOHYDRA 17.8 U/ML (<35.0)
== END ==
LOC: M LAB 13:56
PROVIDERS: ATTEND Internal Medicine Gastroenterology
DX: R93.3 Abnormal findings on diagnostic imaging of other parts of digestive tract (principal); Z79.01 Long term (current) use of anticoagulants; Z79.899 Other long term (current) drug therapy

== ENCOUNTER 2020-01-10 22:50 | Emergency (ER) | payer MEDICARE, BC ==
[~2020-01-10 22:50] MED LIST changes: -D31000TA2 PO; -DIGO0.253 PO; -ETAN50SY SC; -EZET10TA21 PO; -LISI-542 PO; -OXYC1TAB23 PO; -PILO1OPD OD; -PRED10TA2 PO
[2020-01-10] MEDS ORDERED: MORPHINE 4 MG/ML 1ML VIAL/SYRINGE (J2270) As Ordered ONE (23:54)
[2020-01-11] MEDS ORDERED: TAMSULOSIN 0.4 MG CAP As Ordered ONE (01:17)
[2020-01-11] MEDS ORDERED: NORCO 5/325MG TABLET (BULK FOR ED) As Ordered ONE (01:17)
[2020-02-06 11:30] LABS: APPEARANCE, URINE CLOUDY (CLEAR); BACTERIA, URINE AUTO NEGATIVE (NEGATIVE); BILIRUBIN, URINE AUTO NEGATIVE (NEGATIVE); BLOOD, URINE BLOOD 3+ (NEGATIVE); CALCIUM OXALATE CRYSTALS LARGE; COLOR, URINE YELLOW (YELLOW); GLUCOSE, URINE (UA) AUTO NEGATIVE (NEGATIVE); KETONE, URINE AUTO NEGATIVE (NEGATIVE); LEUKOCYTE ESTERASE, URINE AUTO NEGATIVE (NEGATIVE); MUCUS, URINE SMALL (NEGATIVE); NITRITE, URINE AUTO NEGATIVE (NEGATIVE); PROTEIN, URINE AUTO 1+ mg/dL (NEGATIVE); RBC, URINE AUTO TNTC /HPF (0-3); SPECIFIC GRAVITY URINE AUTO 1.023 (1.002-1.035); SQUAMOUS EPITHELIAL CELL UR AU 0 /HPF (0-6); WBC, URINE AUTO 6 /HPF (0-3)
[2020-02-06 12:32] LABS: INR 2.25; PARTIAL THROMBOPLASTIN TIME 28.4 SECONDS (25.0-38.4); PROTHROMBIN TIME 25.4 SECONDS (11.8-14.0)
[2020-02-06 14:14] LABS: APPEARANCE, URINE CLOUDY (CLEAR); BACTERIA, URINE AUTO NEGATIVE (NEGATIVE); BILIRUBIN, URINE AUTO NEGATIVE (NEGATIVE); BLOOD, URINE BLOOD 3+ (NEGATIVE); CALCIUM OXALATE CRYSTALS LARGE; COLOR, URINE YELLOW (YELLOW); GLUCOSE, URINE (UA) AUTO NEGATIVE (NEGATIVE); KETONE, URINE AUTO NEGATIVE (NEGATIVE); LEUKOCYTE ESTERASE, URINE AUTO NEGATIVE (NEGATIVE); MUCUS, URINE SMALL (NEGATIVE); NITRITE, URINE AUTO NEGATIVE (NEGATIVE); PROTEIN, URINE AUTO 1+ mg/dL (NEGATIVE); RBC, URINE AUTO TNTC /HPF (0-3); SPECIFIC GRAVITY URINE AUTO 1.023 (1.002-1.035); SQUAMOUS EPITHELIAL CELL UR AU 0 /HPF (0-6); WBC, URINE AUTO 6 /HPF (0-3)
[2020-02-06 14:42] LABS: BASO # 0.1 10^3/uL (0.0-0.2); BASO % 0.7 % (0.0-1.0); EOS # 0.1 10^3/uL (0.0-0.5); EOS % 0.5 % (0.0-3.0); HEMATOCRIT 45.4 % (42.0-52.0); HEMOGLOBIN 14.9 g/dl (13.5-17.5); LYMPH # 1.6 10^3/uL (1.5-5.0); LYMPH % 15.1 % (24.0-44.0); MEAN CORPUSCULAR HEMOGLOBIN 30.8 pg (27.0-33.0); MEAN CORPUSCULAR HGB CONC 32.8 g/dl (32.0-36.5); MONO % 9.9 % (0.0-5.0); NEUTROPHILS # 7.6 10^3/uL (1.5-8.5); NEUTROPHILS % 72.7 % (36.0-66.0); PLATELET COUNT, AUTOMATED 241 10^3/uL (150-450); RED BLOOD COUNT 4.83 10^6/uL (4.30-6.10); WHITE BLOOD COUNT 10.4 10^3/uL (4.0-10.0)
[2020-02-17 08:05] LABS: CREATININE FOR GFR 1.27 MG/DL (0.70-1.30); GLOMERULAR FILTRATION RATE 57.4 (>35); POTASSIUM SERUM 4.6 MEQ/L (3.5-5.1)
[2020-02-17 08:06] LABS: ALBUMIN 3.8 GM/DL (3.2-5.2); BILIRUBIN,DIRECT 0.1 MG/DL (0.0-0.2); BILIRUBIN,TOTAL 0.4 MG/DL (0.2-1.0); CALCIUM LEVEL 9.5 MG/DL (8.8-10.2); DIGOXIN LEVEL 0.9 NG/ML (0.5-2.0); TOTAL PROTEIN 6.8 GM/DL (6.4-8.2)
[2020-03-22] MEDS ORDERED: PRED10TA2 PO (11:45)
== END 2020-01-11 01:30 | disposition home or self-care (01) ==
LOC: M ED 22:50
DX: N20.1 Calculus of ureter (principal); I10 Essential (primary) hypertension; I48.91 Unspecified atrial fibrillation; M06.9 Rheumatoid arthritis, unspecified; K21.9 Gastro-esophageal reflux disease without esophagitis
CPT/HCPCS: 74176; 80048; 80076; 80162; 81001; 83690; 85025; 85610; 85730; 87086; 96374; 99283; J2270

== ENCOUNTER → 2020-02-18 | Outpatient (REF) | payer MEDICARE, BC ==
[~2020-02-18] MED LIST changes: +D31000TA2 PO; +DIGO0.253 PO; +ETAN50SY SC; +EZET10TA21 PO; +LISI-542 PO; +OXYC1TAB23 PO; +PILO1OPD OD; +PRED10TA2 PO
[2020-02-19 14:43] LABS: APPEARANCE, URINE CLOUDY (CLEAR); BACTERIA, URINE AUTO NEGATIVE (NEGATIVE); BILIRUBIN, URINE AUTO NEGATIVE (NEGATIVE); BLOOD, URINE BLOOD 3+ (NEGATIVE); CALCIUM OXALATE CRYSTALS LARGE; COLOR, URINE AMBER (YELLOW); GLUCOSE, URINE (UA) AUTO NEGATIVE (NEGATIVE); KETONE, URINE AUTO NEGATIVE (NEGATIVE); LEUKOCYTE ESTERASE, URINE AUTO NEGATIVE (NEGATIVE); MUCUS, URINE SMALL (NEGATIVE); NITRITE, URINE AUTO NEGATIVE (NEGATIVE); PROTEIN, URINE AUTO NEGATIVE (NEGATIVE); RBC, URINE AUTO TNTC /HPF (0-3); SPECIFIC GRAVITY URINE AUTO 1.023 (1.002-1.035); SQUAMOUS EPITHELIAL CELL UR AU 0 /HPF (0-6); UROBILINOGEN, URINE AUTO 0.2 mg/dL (0.0-2.0); WBC, URINE AUTO 30 /HPF (0-3)
== END ==
LOC: M LAB REF 16:00
PROVIDERS: ATTEND Nurse Practitioner Family
DX: R31.0 Gross hematuria (principal)
CPT/HCPCS: 51798; 81000; 81001; 87086; 88108; G0463

== ENCOUNTER → 2020-02-19 | Outpatient (REF) | payer MEDICARE, BC ==
[2020-02-19 15:03] LABS: BLOOD UREA NITROGEN 22 MG/DL (7-18); CALCIUM LEVEL 9.6 MG/DL (8.8-10.2); CARBON DIOXIDE LEVEL 25 MEQ/L (21-32); CHLORIDE LEVEL 108 MEQ/L (98-107); CREATININE FOR GFR 1.01 MG/DL (0.70-1.30); GLOMERULAR FILTRATION RATE > 60.0 (>35); GLUCOSE, FASTING 146 MG/DL (70-100); POTASSIUM SERUM 4.6 MEQ/L (3.5-5.1); SODIUM LEVEL 140 MEQ/L (136-145)
== END ==
LOC: M SMT 14:30
PROVIDERS: ATTEND Nurse Practitioner Family
DX: R31.0 Gross hematuria (principal)

== ENCOUNTER 2020-02-26 06:41 | Emergency (ER) | payer MEDICARE, BC ==
[~2020-02-26] VITALS: Ht 175.3 cm; Wt 83.2 kg
[~2020-02-26 06:41] MED LIST changes: -D31000TA2 PO; -DIGO0.253 PO; -ETAN50SY SC; -EZET10TA21 PO; -LISI-542 PO; -OXYC1TAB23 PO; -PILO1OPD OD; -PRED10TA2 PO
[2020-02-26] MEDS ORDERED: ETAN50SY SC (06:52)
[2020-02-26] MEDS ORDERED: PILO1OPD OD (06:52)
[2020-02-26] MEDS ORDERED: METH2.5T48 PO (06:52)
[2020-02-26] MEDS ORDERED: OXYC1TAB23 PO (06:54)
[2020-02-26 08:23] LABS: BASO % 0.3 % (0.0-1.0); EOS % 0.3 % (0.0-3.0); HEMATOCRIT 40.7 % (42.0-52.0); HEMOGLOBIN 13.6 g/dl (13.5-17.5); LYMPH # 1.1 10^3/uL (1.5-5.0); LYMPH % 9.5 % (24.0-44.0); MEAN CORPUSCULAR HGB CONC 33.4 g/dl (32.0-36.5); MEAN CORPUSCULAR VOLUME 95.8 fl (80.0-96.0); MONO # 0.7 10^3/uL (0.0-0.8); MONO % 5.6 % (0.0-5.0); NEUTROPHILS # 9.7 10^3/uL (1.5-8.5); NEUTROPHILS % 83.8 % (36.0-66.0); PLATELET COUNT, AUTOMATED 271 10^3/uL (150-450); RED BLOOD COUNT 4.25 10^6/uL (4.30-6.10); WHITE BLOOD COUNT 11.6 10^3/uL (4.0-10.0)
[2020-02-26 08:42] LABS: INR 2.93; PROTHROMBIN TIME 31.3 SECONDS (11.8-14.0)
[2020-02-26 08:46] LABS: ALBUMIN 3.7 GM/DL (3.2-5.2); BILIRUBIN,DIRECT 0.2 MG/DL (0.0-0.2); BILIRUBIN,TOTAL 0.6 MG/DL (0.2-1.0); TOTAL PROTEIN 6.7 GM/DL (6.4-8.2)
[2020-02-26] MEDS ORDERED: ISOVUE-370 76% 100ML VIAL As Ordered ONE ×2 (09:33→09:44)
[2020-02-26] MEDS ORDERED: ACETAMINOPHEN 500 MG TAB PO ONE (09:45)
--- NOTE | 2020-02-26 10:41 | REPVR ---
PROCEDURE INFORMATION: Exam: CT Abdomen and Pelvis without and with Contrast; Urography Exam date and time: 02/26/20 (9:45am) Age: 84 years old Clinical indication: Left flank pain. Hematuria. TECHNIQUE: Imaging protocol: Computed tomography of the abdomen and pelvis without and with intravenous contrast. Exam focused on the kidneys and ureters. Radiation optimization: All CT scans at this facility use at least one of these dose optimization techniques: automated exposure control; mA and/or kV adjustment per patient size (includes targeted exams where dose is matched to clinical indication); or iterative reconstruction. Contrast material: Isovue 370 Contrast volume: 100 ml Contrast route: IV COMPARISON: CT ABDOMEN PELVIS of 01/10/20 FINDINGS: Lower lung rousseau: Cardiac electrodes in place. Liver: Normal. No solid mass. Gallbladder and bile ducts: Previous cholecystectomy. Mild biliary dilatation again seen. Pancreas: Normal. No ductal dilatation. Spleen: Normal. No splenomegaly. Adrenals: Normal. No mass. Kidneys and ureters: Moderate left hydroureteronephrosis. Obstructing stone (4 x 2 mm size) in the distal left ureter, located 3-4 cm above the left UV junction (Ser. 201 - Image #116). 1 or 2 small non-obstructing stones in each kidney. Stomach and bowel: Normal. No bowel obstruction. No mucosal thickening. Appendix: A normal appendix is visualized. Intraperitoneal space: Unremarkable. No free air. No significant fluid collection. Lymph nodes: Unremarkable. No enlarged lymph nodes. Vasculature: Unremarkable. No abdominal aortic aneurysm. Bladder: Unremarkable. Reproductive: Unremarkable. Other findings: S/P radical prostatectomy. Multiple surgical clips in the pelvis. Bones/joints: Unremarkable. No acute fracture nor dislocation. Soft tissues: Unremarkable. IMPRESSION: Moderate left hydroureteronephrosis. Obstructing stone (4 x 2 mm size) in the distal left ureter, located 3-4 cm above the left UV junction. 1 or 2 small non-obstructing stones in each kidney. SP cholecystectomy. S/P radical prostatectomy. Electronically signed by: Shruthi Goldman On 02/26/2020 10:40:44 AM
[2020-02-26 11:24] VITALS: BP 150/82
[2020-02-26] MEDS ORDERED: FLOM0.4C39 PO (12:01)
[2020-03-22] MEDS ORDERED: PRED10TA2 PO (11:45)
== END 2020-02-26 12:24 | disposition home or self-care (01) ==
LOC: M ED 06:41
DX: N13.2 Hydronephrosis with renal and ureteral calculous obstruction (principal); N20.0 Calculus of kidney; I48.91 Unspecified atrial fibrillation; I25.2 Old myocardial infarction; Z86.73 Personal history of transient ischemic attack (TIA), and cerebral infarction without residual deficits; E78.5 Hyperlipidemia, unspecified; Z87.442 Personal history of urinary calculi; Z86.718 Personal history of other venous thrombosis and embolism; Z86.711 Personal history of pulmonary embolism; J45.909 Unspecified asthma, uncomplicated; G47.30 Sleep apnea, unspecified; Z95.5 Presence of coronary angioplasty implant and graft; Z95.0 Presence of cardiac pacemaker; Z85.46 Personal history of malignant neoplasm of prostate; Z98.61 Coronary angioplasty status; Z79.01 Long term (current) use of anticoagulants; Z79.899 Other long term (current) drug therapy; Z88.5 Allergy status to narcotic agent; Z88.8 Allergy status to other drugs, medicaments and biological substances
CPT/HCPCS: 74178; 80047; 80076; 81001; 83690; 85025; 85610; 85730; 99284; Q9967

== ENCOUNTER 2020-03-06 21:42 | Inpatient (IN) | payer MEDICARE, BC ==
[~2020-03-06] VITALS: Ht 175.3 cm; Wt 79.5 kg
[~2020-03-06 21:42] MED LIST changes: +ETAN50SY SC; +OXYC1TAB23 PO; +PILO1OPD OD
[2020-03-06 22:39] LABS: BASO % 0.5 % (0.0-1.0); EOS # 0.1 10^3/uL (0.0-0.5); EOS % 1.8 % (0.0-3.0); HEMATOCRIT 42.3 % (42.0-52.0); HEMOGLOBIN 14.1 g/dl (13.5-17.5); LYMPH # 1.8 10^3/uL (1.5-5.0); LYMPH % 22.7 % (24.0-44.0); MEAN CORPUSCULAR HEMOGLOBIN 31.5 pg (27.0-33.0); MEAN CORPUSCULAR HGB CONC 33.3 g/dl (32.0-36.5); MEAN CORPUSCULAR VOLUME 94.6 fl (80.0-96.0); NEUTROPHILS # 4.8 10^3/uL (1.5-8.5); NEUTROPHILS % 61.2 % (36.0-66.0); PLATELET COUNT, AUTOMATED 278 10^3/uL (150-450); RED BLOOD COUNT 4.47 10^6/uL (4.30-6.10); WHITE BLOOD COUNT 7.9 10^3/uL (4.0-10.0)
--- NOTE | 2020-03-06 22:41 | REPVR ---
PROCEDURE INFORMATION: Exam: CT Head Without Contrast Exam date and time: 03/06/2020 10:27 PM Age: 84 years old Clinical indication: Other: Dizziness, weakness TECHNIQUE: Imaging protocol: Computed tomography of the head without contrast. Radiation optimization: All CT scans at this facility use at least one of these dose optimization techniques: automated exposure control; mA and/or kV adjustment per patient size (includes targeted exams where dose is matched to clinical indication); or iterative reconstruction. COMPARISON: CT Head without contrast 01/31/2019 12:34 AM FINDINGS: Brain: Mild nonspecific hypodensities of the periventricular and deep subcortical white matter, most likely secondary to chronic small vessel ischemic change. No intracranial hemorrhage or extra-axial fluid collection. No evidence of mass effect or midline shift. Amaya-white matter differentiation is normal. Ventricles: Mild prominence of the ventricles and sulci, most likely attributed to parenchymal volume loss. Bones/joints: No acute osseus lesion or fracture. Paranasal sinuses: Visualized sinuses are unremarkable. No fluid levels. Mastoid air cells: Unremarkable. Soft tissues: Unremarkable. IMPRESSION: 1. No acute intracranial pathology. 2. Other chronic findings, as above. Electronically signed by: Adonis Hurtado On 03/06/2020 22:41:26 PM
[2020-03-06 23:03] LABS: INR 1.59; PROTHROMBIN TIME 19.3 SECONDS (12.5-14.3)
[2020-03-06 23:04] LABS: PARTIAL THROMBOPLASTIN TIME 32.6 SECONDS (24.2-38.5)
--- NOTE | 2020-03-06 23:09 | REPVR ---
PROCEDURE INFORMATION: Exam: XR Chest, 2 Views Exam date and time: 03/06/2020 10:07 PM Age: 84 years old Clinical indication: Other: Dizzy, weak; Additional info: Dizziness, weakness TECHNIQUE: Imaging protocol: XR of the chest Views: 2 views. COMPARISON: HI Chest, 1 view 04/25/2018 4:07 PM FINDINGS: Tubes, catheters and devices: Left-sided cardiac pacemaker in place. Lungs: No focal areas of consolidation. Pleural space: No pleural effusion or pneumothorax. Heart/Mediastinum: Cardiac and mediastinal silhouettes are unremarkable. Bones/joints: No acute osseus lesion or fracture. IMPRESSION: No acute cardiopulmonary findings. Electronically signed by: Adonis Hurtado On 03/06/2020 23:09:00 PM
[2020-03-06 23:12] LABS: ALBUMIN 3.7 GM/DL (3.2-5.2); ALT/SGPT 42 U/L (12-78); BILIRUBIN,DIRECT 0.2 MG/DL (0.0-0.2); BILIRUBIN,TOTAL 0.6 MG/DL (0.2-1.0); BLOOD UREA NITROGEN 17 MG/DL (7-18); CALCIUM LEVEL 9.5 MG/DL (8.8-10.2); CARBON DIOXIDE LEVEL 27 MEQ/L (21-32); CHLORIDE LEVEL 106 MEQ/L (98-107); CK-MB VALUE MASS < 1.0 NG/ML (<3.6); CPK CREATINE PHOSPHOKINASE 38 U/L (39-308); CREATININE FOR GFR 1.24 MG/DL (0.70-1.30); FREE T4 1.08 NG/DL (0.76-1.46); GLUCOSE, FASTING 142 MG/DL (70-100); MB/CK RELATIVE INDEX 2.63 (< OR =4); POTASSIUM SERUM 4.2 MEQ/L (3.5-5.1); SODIUM LEVEL 138 MEQ/L (136-145); TOTAL PROTEIN 6.8 GM/DL (6.4-8.2); TROPONIN I < 0.02 NG/ML (< 0.10)
[2020-03-06] MEDS ORDERED: NS 500 ML IV ONE (23:30)
[2020-03-07] MEDS ORDERED: ACETAMINOPHEN TAB 650MG DOSE (2X325MG) PO PRN (00:45)
[2020-03-07] MEDS ORDERED: PERCOCET 5MG/325MG TAB PO PRN (01:45)
[2020-03-07] MEDS ORDERED: D31000TA2 PO (01:53)
[2020-03-07] MEDS ORDERED: LISI-542 PO (01:53)
[2020-03-07] MEDS ORDERED: FLOM0.4C39 PO (01:53)
[2020-03-07] MEDS ORDERED: DIGO0.253 PO (02:01)
[2020-03-07] MEDS ORDERED: NS 1,000 ML IV SCH (02:30)
[2020-03-07 03:13] VITALS: BP 146/67
--- NOTE | 2020-03-07 03:41 | HPEPDOC ---
[facility] Medical History & Physical Date of Admission Mar 07, 2020 Date of Service: Mar 07, 2020 Attending Physician: DARA KITCHEN MD History and Physical CHIEF COMPLAINT: Body aches, fatigue, weakness, inability to ambulate HISTORY OF PRESENT ILLNESS: 84-year-old gentleman with a past medical history significant for polymyalgia rheumatica, ankylosing spondylosis, GERD, dyslipidemia, hypertension, atrial fibrillation, prostate cancer status post prostatectomy, history of cardiac stent placement, s/p PPM who presented to the ED with generalized body aches, fatigue and increasing weakness to the point of inability to ambulate over 3-4 days. He reports recently noted rhinorrhea but no new cough, no congestion, no noted fevers, chest pain, palpitations, near syncope, LOC, vertigo, falls, recent weight loss, sweats, nausea, emesis, diarrhea, constipation or abdominal pain. He reports that his symptoms really began with profound exhaustion after intensively working in his yard 4 days ago. Since then, he has felt worse as noted above and has had poor PO with a poor appetite. In the ED he was hemodynamically stable, afebrile, and breathing comfortably on room air. Work up revealed WBC of 7.9, Hgb 14.1, platelets 278, na 138, K 4.2, Cr 1.24, unremarkable LFTs, TSH and free T4 wnl, INR 1.59, non ischemic EKG with sinus rhythm with some precordial TWI and 1st degree heart block and troponin wnl. He had a CT head without acute abnormalities as well as a CXR that did not show acute cardiopulmonary pathology. While in the ED, he was noted to be orthostatic and he was given a 500cc of NS bolus and admitted to medicine. PAST MEDICAL HISTORY: 1. Polymyalgia rheumatica. 2. Ankylosing spondylitis. 3. Gastroesophageal reflux disease. 4. Osteoarthritis. 5. Hyperlipidemia. 6. Hypertension. 7. Atrial fibrillation. 8. Prostate cancer approximately 16 years ago, status post prostatectomy. 9. Pulmonary embolism (PE) and deep vein thrombosis (DVT) in 2013. PAST SURGICAL HISTORY: 1. Cardiac stent placement 2. Prostatectomy. 3. Pacemaker placement. 4. Cholecystectomy. SOCIAL HISTORY: Denies alcohol use. Denies tobacco use. Denies illicit drug use. He lives alone but the daughter lives close by. FAMILY HISTORY: Non contributory REVIEW OF SYSTEMS: A 10 point ROS was completed and all pertinent positives are as per HPI and all other elements were otherwise negative. OBJECTIVE: VITAL SIGNS: HDS, afebrile, saturating >92% on room air GENERAL: NAD HEENT: Normocephalic, atraumatic. PERRLA, EOMI, mild conjunctival injection, no discharge, mild facial flushing NECK: No JVD, appears to have a palpable enlarged thyroid, painless, smooth, no noted adenopathy CARDIOVASCULAR: S1, S2, regular rate. Rhythm is paced on telemetry with some frequent PVCs. LUNGS: Clear to auscultation bilaterally, no wheezing, crackles or rhonchi ABDOMEN: Normoactive sounds, soft, nontender, nondistended. EXTREMITIES: No edema appreciated. WWP, 2+ DP pulses Neuro: 5/5 strength in all 4 extremities, CN 2-12 intact, clear speech without dysarthria, AOx3 LABORATORY DATA: as summarized above, see below for details IMAGING: as summarized above ASSESSMENT: 84-year-old gentleman with a past medical history significant for polymyalgia rheumatica, ankylosing spondylosis, GERD, dyslipidemia, hypertension, atrial fibrillation, prostate cancer status post prostatectomy, history of cardiac stent placement, s/p PPM who presented to the ED with generalized body aches, fatigue and increasing weakness to the point of inability to ambulate over 3-4 days who is now admitted to medicine for dehydration with noted orthostasis and workup and evaluation of the acute physical deconditioning. 1.Weakness and inability to ambulate: i/s/o recent strenuous yard work followed by days of poor PO and found to be orthostatic, likely dehydrated vs. acute viral illness given rhinorrhea, body aches and malaise vs. PMR flare -s/p 500cc in the ED, will give gentle fluids at 100cc/hr to 1L -CT head wnl -respiratory panel to r/o covid-19 given the body aches, malaise with some URI symptoms (although at this time mostly rhinorrhea) -check UA for potential UTI given history of renal stones -PT/OT -repeat orthostatics in the morning -Has some frequent PVCs on tele, will continue tele monitoring -Low suspicion of PMR flare without report of pain, stiffness at this time but will monitor. Plan will be to continue PMR meds and not increase home pred dose at this time. 2. Polymyalgia rheumatica, on chronic prednisone. -continue weekly methotrexate per home script. -Continue folic acid BID per home dosing. -Continue home etanercept subcutaneously once a week. -continue home dose of prednisone 3. Chronic Afib -continue home warfarin 2.5 -continue home digoxin due to history of adverse reaction to metoprolo -Current rate is in the satisfactory range. -Telemetry, given some ectopy in the ED - Daily INR, goal 2-3 4. History of PE/DVT -On warfarin as noted above 5. History of prostate cancer approximately 16 years ago - status post prostatectomy. 6. CAD s/p cardiac stent placement and pacemaker placement. -No report of chest pain, EKG with some noted precordial TWI from prior otherwise no ST segment changes and troponin negative 7. Hypertension. -BP is actually relatively soft and he is orthostatic, so will hold his home lisinopril for now and actually give fluids 8. Gastroesophageal reflux disease. -Continue home omeprazole. 9. History of dyslipidemia. -Not on statin due to prior adverse event, and currently having body aches and myalgias 10. DVT prophylaxis. The patient is on warfarin. Vital Signs Vital Signs Date Time Temp Pulse Resp B/P (MAP) Pulse Ox O2 Delivery O2 Flow Rate FiO2 03/06/20 23:28 78 106/59 (75) 03/06/20 22:36 98.7 03/06/20 22:21 16 98 Room Air Laboratory Data Labs 24H Laboratory Tests 2 03/06/20 22:32: Immature Granulocyte % (Auto) 0.8, Neutrophils (%) (Auto) 61.2, Lymphocytes (%) (Auto) 22.7L, Monocytes (%) (Auto) 13.0H, Eosinophils (%) (Auto) 1.8, Basophils (%) (Auto) 0.5, Neutrophils # (Auto) 4.8, Lymphocytes # (Auto) 1.8, Monocytes # (Auto) 1.0H, Eosinophils # (Auto) 0.1, Basophils # (Auto) 0.0, Nucleated Red Blood Cells % (auto) 0.0, Prothrombin Time 19.3H, Prothromb Time International Ratio 1.59, Activated Partial Thromboplast Time 32.6, Anion Gap 5L, Glomerular Filtration Rate 59.0, Calcium Level 9.5, Total Bilirubin 0.6, Direct Bilirubin 0.2, Aspartate Amino Transf (AST/SGOT) 23, Alanine Aminotransferase (ALT/SGPT) 42, Alkaline Phosphatase 65, Total Creatine Kinase 38L, Creatine Kinase MB < 1.0, Creatine Kinase MB Relative Index 2.63, Troponin I < 0.02, Total Protein 6.8, Albumin 3.7, Albumin/Globulin Ratio 1.2, Thyroid Stimulating Hormone (TSH) 3.260, Free Thyroxine 1.08 CBC/BMP Laboratory Tests 03/06/20 22:32 Home Medications Scheduled Ascorbic Acid (Ascorbic Acid) 500 Mg Tab, 500 MG PO DAILY Calcium Polycarbophil (Fibercon) 625 Mg Tab, 625 MG PO DAILY Cholecalciferol (Vitamin D3) (Vitamin D3) 2,000 Unit Tab, 2,000 UNIT PO DAILY Cyanocobalamin (Vitamin B-12) (Vitamin B-12) 1,000 Mcg Cap, 1,000 MCG PO DAILY Digoxin (Digoxin) 125 Mcg Tab, 125 MCG PO BID Etanercept (Enbrel) 50 Mg/1 Ml Syringe, 50 MG SC Q7D Folic Acid (Folic Acid) 800 Mcg Cap, 800 MCG PO BID Lisinopril (Lisinopril) 10 Mg Tab, 10 MG PO BID Magnesium Oxide (Magnesium) 400 Mg Cap, 400 MG PO DAILY Methotrexate Sodium (Methotrexate) 2.5 Mg Tab, 20 MG PO 1XWK SATURDAYS Omeprazole (Omeprazole) 20 Mg Cap, 20 MG PO QHS Pilocarpine HCl (Pilocarpine HCl) 1% 15ML Drops, 1 DROP OD QPM Prednisone (Prednisone) 5 Mg Tab, 5 MG PO DAILY Tamsulosin HCl (Flomax) 0.4 Mg Capsule, 1 CAP PO DAILY once daily 1/2 hour following the same meal each day Warfarin Sodium (Warfarin Sodium) 2.5 Mg Tab, 2.5 MG PO 6XWK WED,THURS,FRI,SUN,SUN,MON Warfarin Sodium (Warfarin Sodium) 2.5 Mg Tab, 5 MG PO 1XWK SUNDAY Scheduled PRN Oxycodone HCl/Acetaminophen (Oxycodone-Acetaminophen 5-325) 1 Each Tablet, 1 TAB PO TIDP PRN for pain Allergies Coded Allergies: codeine (Verified Allergy, Unknown, sensitivity, 01/31/19) metoprolol (Verified Allergy, Unknown, 01/31/19) psyllium (Verified Allergy, Unknown, 01/31/19) amlodipine (Verified Adverse Reaction, Severe, "cant see/think", 01/31/19) Ruatnyl-Tmy-Fxz Reductase Inhibitor (Verified Adverse Reaction, Intermediate, feels very bad, 01/31/19) A-FIB/CHADSVASC A-FIB History Current/History of A-Fib/PAF?: Yes Current PO Anticoag Therapy: Yes Treatment Treatment ordered: Warfarin DARA KITCHEN MD Mar 07, 2020 00:43
[2020-03-07 06:00] VITALS: BP 157/70
--- NOTE | 2020-03-07 08:00 | REPVR ---
PROCEDURE INFORMATION: Exam: US Soft Tissue Head and Neck, Thyroid Exam date and time: 03/07/2020 6:53 AM Age: 84 years old Clinical indication: Other: Thyromegaly TECHNIQUE: Imaging protocol: Real-time ultrasound scan of the neck with image documentation. Exam focused on the thyroid. COMPARISON: CT Head without contrast 03/06/2020 10:20 PM FINDINGS: Right thyroid lobe: The right lobe measures 3.7 x 1.5 x 1.3 cm. Left thyroid lobe: The left lobe measures 3.6 x 0.7 x 0.8 cm. There are 2 colloid cysts within the left mid zone. They measure 6 x 4 x 5 mm and 2 x 1 x 3 mm. Isthmus: No nodules. IMPRESSION: Incidental left thyroid subcentimeter colloid cysts. Electronically signed by: Tae Zhou On 03/07/2020 08:00:26 AM
[2020-03-07] MEDS: MAGNESIUM OXIDE 400 MG TAB (MAG-OX) PO SCH (08:06)
[2020-03-07] MEDS: TAMSULOSIN 0.4 MG CAP PO SCH (08:06)
[2020-03-07] MEDS: ASCORBIC ACID 500 MG TAB PO SCH (08:07)
[2020-03-07] MEDS: CYANOCOBALAMIN 500 MCG TAB PO SCH (08:07)
[2020-03-07] MEDS: DIGOXIN 0.25 MG TAB PO SCH (08:07)
[2020-03-07] MEDS: VITAMIN D 1,000 INTERNATIONAL UNITS TABLET PO SCH (08:07)
[2020-03-07] MEDS: FOLIC ACID 1 MG TAB PO SCH ×2 (08:07→20:46)
[2020-03-07] MEDS: FIBER-CON 625 MG TAB PO SCH (08:07)
[2020-03-07 08:50] LABS: HEMATOCRIT 41.4 % (42.0-52.0); HEMOGLOBIN 13.4 g/dl (13.5-17.5); MEAN CORPUSCULAR HEMOGLOBIN 31.2 pg (27.0-33.0); MEAN CORPUSCULAR HGB CONC 32.4 g/dl (32.0-36.5); MEAN CORPUSCULAR VOLUME 96.5 fl (80.0-96.0); PLATELET COUNT, AUTOMATED 262 10^3/uL (150-450); RED BLOOD COUNT 4.29 10^6/uL (4.30-6.10); WHITE BLOOD COUNT 10.1 10^3/uL (4.0-10.0)
[2020-03-07] MEDS ORDERED: predniSONE 5 MG TAB PO SCH (09:00)
[2020-03-07 09:06] LABS: C REACTIVE PROTEIN QUANTITATIV 2.24 MG/DL (0.00-0.30); MAGNESIUM LEVEL 1.9 MG/DL (1.8-2.4)
[2020-03-07 10:21] LABS: INR 1.67; PROTHROMBIN TIME 20.1 SECONDS (12.5-14.3)
--- NOTE | 2020-03-07 11:44 | IPNPDOC ---
Text Note Date of Service The patient was seen on 03/07/20. NOTE Subjective: Patient complains of hip, ankles and shoulder tenderness and and difficulties to walk due to pain in his ankle. Objective: GENERAL: NAD HEENT: PERRLA, EOMI NECK: No JVD CARDIOVASCULAR: S1, S2 ABDOMEN: Normoactive sounds, soft, nontender, nondistended. EXTREMITIES: No cyanosis, no swelling Neuro: CN 2-12 intact, nonfocal 84-year-old gentleman with a past medical history significant for polymyalgia rheumatica, ankylosing spondylosis, GERD, dyslipidemia, hypertension, atrial fibrillation, prostate cancer status post prostatectomy, history of cardiac stent placement, s/p PPM who presented to the ED with generalized body aches, fatigue and increasing weakness to the point of inability to ambulate over 3-4 days who is now admitted to medicine for dehydration with noted orthostasis and workup and evaluation of the acute physical deconditioning. 1.Weakness and inability to ambulate Due to deconditioning secondary to multiple comorbidities -PT/OT 2. Polymyalgia rheumatica, on chronic prednisone Patient complains of hip and shoulder pain I will increase the dose of prednisone to 20 mg Follow-up with industrial analyst in the outpatient settings 3. Chronic Afib Heart rate is under control Continue Coumadin Monitor INR 4. History of PE/DVT -On warfarin as noted above 5. History of prostate cancer approximately 16 years ago/ hematuria - status post prostatectomy. -Patient has frequency in urination, UA showed hematuria. Patient stated that he had recently cystoscopy in the urology office. We'll obtain report from urologist office Hemoglobin stable 6. CAD s/p cardiac stent placement and pacemaker placement. -No report of chest pain, EKG with some noted precordial TWI from prior otherwise no ST segment changes and troponin negative 7. Hypertension. restarted lisinopril for now 8. Gastroesophageal reflux disease. -Continue home omeprazole. 9. History of dyslipidemia. -Not on statin due to prior adverse event Will start Ezetimibe Ankylosing spondylitis continue weekly methotrexate per home script. -Continue folic acid BID per home dosing. -Continue home etanercept subcutaneously once a week. DVT prophylaxis. The patient is on warfarin. VS,Fishbone, I+O VS, Fishbone, I+O Laboratory Tests 03/06/20 22:32 03/07/20 08:04 Vital Signs Date Time Temp Pulse Resp B/P (MAP) Pulse Ox O2 Delivery O2 Flow Rate FiO2 03/07/20 08:07 70 03/07/20 06:00 98.0 18 157/70 (99) 97 Room Air I&O- Last 24 Hours up to 6 AM 03/07/20 06:00 Intake Total 500 ml Output Total 0 ml Balance 500 ml LACY SARABIA DO Mar 07, 2020 11:44
[2020-03-07] MEDS ORDERED: PILL CUTTER 1 EACH XX PRN (12:00)
[2020-03-07] MEDS: lisinopriL 5 MG TAB PO SCH (12:29)
[2020-03-07] MEDS: predniSONE 5 MG TAB PO SCH (12:30)
--- NOTE | 2020-03-07 13:56 | ECGEPIP ---
[facility] - ED Test Date: 2020-03-06 Pat Name: ANGIE MAO Department: Room: [place] [address] Gender: Male Fermenter: ANTONELLA : 1935 Requested By: BRAYAN Rubio Order Number: [id number] Reading MD: María Spear Measurements Intervals [place] Rate: 69 P: 45 ME: 224 QRS: -5 QRSD: 98 T: -79 QT: 368 QTc: 396 Interpretive Statements SINUS RHYTHM WITH FIRST DEGREE AV BLOCK ST DEVIATION AND MARKED T-WAVE ABNORMALITY, CONSIDER ANTEROLATERAL ISCHEMIA ST DEVIATION AND MODERATE T-WAVE ABNORMALITY, CONSIDER INFERIOR ISCHEMIA clinical correlation Electronically Signed on 03-07-2020 13:56:35 EDT by María Spear
[2020-03-07 14:00] VITALS: BP 146/54
[2020-03-07] MEDS ORDERED: WARFARIN SOD 2.5MG TAB PO SCH (17:00)
[2020-03-07] MEDS ORDERED: WARFARIN SOD 2MG TAB PO ONE (17:00)
[2020-03-07] MEDS ORDERED: EZETIMIBE 10 MG TAB (ZETIA) PO SCH (21:00)
[2020-03-07] MEDS ORDERED: PILOCARPINE 1% OPHTH SOLN 15 ML OD SCH (21:00)
[2020-03-07] MEDS ORDERED: OMEPRAZOLE 20 MG CAP PO SCH (21:00)
[2020-03-07 22:00] VITALS: BP 153/60
[2020-03-08 06:00] VITALS: BP 156/67
[2020-03-08 06:29] LABS: INR 1.97; PROTHROMBIN TIME 22.8 SECONDS (12.5-14.3)
[2020-03-08 06:43] LABS: CALCIUM LEVEL 9.3 MG/DL (8.8-10.2); CREATININE FOR GFR 1.26 MG/DL (0.70-1.30); GLOMERULAR FILTRATION RATE 57.9 (>35); POTASSIUM SERUM 4.5 MEQ/L (3.5-5.1)
[2020-03-08] MEDS ORDERED: FLUBLOK(EGG FREE)(QUAD)INFLUENZA VACC 0.5ML SYRINGE 18YRS & OLDER IM ONE (09:00)
[2020-03-08] MEDS: VITAMIN D 1,000 INTERNATIONAL UNITS TABLET PO SCH (09:27)
[2020-03-08] MEDS: FIBER-CON 625 MG TAB PO SCH (09:28)
[2020-03-08] MEDS: FOLIC ACID 1 MG TAB PO SCH (09:28)
[2020-03-08] MEDS: ASCORBIC ACID 500 MG TAB PO SCH (09:28)
[2020-03-08] MEDS: CYANOCOBALAMIN 500 MCG TAB PO SCH (09:28)
[2020-03-08] MEDS: predniSONE 5 MG TAB PO SCH (09:28)
[2020-03-08] MEDS: TAMSULOSIN 0.4 MG CAP PO SCH (09:28)
[2020-03-08] MEDS: MAGNESIUM OXIDE 400 MG TAB (MAG-OX) PO SCH (09:29)
[2020-03-08] MEDS: DIGOXIN 0.25 MG TAB PO SCH (09:29)
[2020-03-08 09:30] VITALS: BP 154/68
[2020-03-08] MEDS: lisinopriL 5 MG TAB PO SCH (09:30)
[2020-03-08] MEDS ORDERED: PRED5TA PO (10:38)
[2020-03-08] MEDS ORDERED: EZET10TA21 PO (10:38)
--- NOTE | 2020-03-08 13:06 | DS.PDOC ---
Discharge Summary General Date of Admission Mar 07, 2020 at 00:34 Date of Discharge 03/08/20 Discharge Summary PROCEDURES PERFORMED DURING STAY: [None]. ADMITTING DIAGNOSES: Weakness and inability to ambulate Polymyalgia rheumatica, on chronic prednisone Chronic Afib History of PE/DVT History of prostate cancer / hematuria CAD s/p cardiac stent placement and pacemaker placement Hypertension Gastroesophageal reflux disease History of dyslipidemia Ankylosing spondylitis DISCHARGE DIAGNOSES: Weakness and inability to ambulate Polymyalgia rheumatica, on chronic prednisone Chronic Afib History of PE/DVT History of prostate cancer / hematuria CAD s/p cardiac stent placement and pacemaker placement Hypertension Gastroesophageal reflux disease History of dyslipidemia Ankylosing spondylitis COMPLICATIONS/CHIEF COMPLAINT: Gait Disturbance, Orthostasis. HISTORY OF PRESENT ILLNESS: 84-year-old gentleman with a past medical history significant for polymyalgia rheumatica, ankylosing spondylosis, GERD, dyslipidemia, hypertension, atrial fibrillation, prostate cancer status post prostatectomy, history of cardiac stent placement, s/p PPM who presented to the ED with generalized body aches, fatigue and increasing weakness to the point of inability to ambulate over 3-4 days who is now admitted to medicine for dehydration with noted orthostasis and workup and evaluation of the acute physical deconditioning. HOSPITAL COURSE: During hospital stay following issue addressed 1.Weakness and inability to ambulate Due to deconditioning secondary to multiple comorbidities -PT/OT 2. Polymyalgia rheumatica, on chronic prednisone Patient complains of hip and shoulder pain I increased the dose of prednisone to 20 mg Follow-up with mainframe programmer analyst in the outpatient settings 3. Chronic Afib Heart rate is under control Continue Coumadin Monitor INR 4. History of PE/DVT -On warfarin as noted above 5. History of prostate cancer approximately 16 years ago/ hematuria - status post prostatectomy. -Patient has frequency in urination, UA showed hematuria. Patient stated that he had recently cystoscopy in the urology office. We'll obtain report from urologist office Hemoglobin stable 6. CAD s/p cardiac stent placement and pacemaker placement. -No report of chest pain, EKG with some noted precordial TWI from prior otherwise no ST segment changes and troponin negative 7. Hypertension. restarted lisinopril for now 8. Gastroesophageal reflux disease. -Continue home omeprazole. 9. History of dyslipidemia. -Not on statin due to prior adverse event Will start Ezetimibe Ankylosing spondylitis continue weekly methotrexate per home script. -Continue folic acid BID per home dosing. -Continue home etanercept subcutaneously once a week. DISCHARGE MEDICATIONS: Please see below. ALLERGIES: Please see below. PHYSICAL EXAMINATION ON DISCHARGE: VITAL SIGNS: Please see below. Objective: GENERAL: NAD HEENT: PERRLA, EOMI NECK: No JVD CARDIOVASCULAR: S1, S2 ABDOMEN: Normoactive sounds, soft, nontender, nondistended. EXTREMITIES: No cyanosis, no swelling Neuro: CN 2-12 intact, nonfocal LABORATORY DATA: Please see below. IMAGING: PROCEDURE INFORMATION: Exam: US Soft Tissue Head and Neck, Thyroid Exam date and time: 03/07/2020 6:53 AM Age: 84 years old Clinical indication: Other: Thyromegaly TECHNIQUE: Imaging protocol: Real-time ultrasound scan of the neck with image documentation. Exam focused on the thyroid. COMPARISON: CT Head without contrast 03/06/2020 10:20 PM FINDINGS: Right thyroid lobe: The right lobe measures 3.7 x 1.5 x 1.3 cm. Left thyroid lobe: The left lobe measures 3.6 x 0.7 x 0.8 cm. There are 2 colloid cysts within the left mid zone. They measure 6 x 4 x 5 mm and 2 x 1 x 3 mm. Isthmus: No nodules. IMPRESSION: Incidental left thyroid subcentimeter colloid cysts. Electronically signed by: Tae Zhou On 03/07/2020 08:00:26 AM PROGNOSIS: Fair ACTIVITY: [As tolerated]. DIET: Cardiac DISPOSITION: 01 Home, Self-Care. ITEMS TO FOLLOWUP ON ON OUTPATIENT: Follow-up with PCP and mainframe programmer analyst DISCHARGE CONDITION: [Stable]. TIME SPENT ON DISCHARGE: Greater than 40 minutes. Vital Signs/I&Os Vital Signs Date Time Temp Pulse Resp B/P (MAP) Pulse Ox O2 Delivery O2 Flow Rate FiO2 03/08/20 09:30 154/68 03/08/20 09:29 77 03/08/20 06:00 97.8 18 92 Room Air I&O- Last 24 Hours up to 6 AM 03/08/20 06:00 Intake Total 1210 ml Output Total 0 ml Balance 1210 ml Laboratory Data Labs 24H Laboratory Tests 2 03/08/20 05:54: Prothrombin Time 22.8H, Prothromb Time International Ratio 1.97, Anion Gap 5L, Glomerular Filtration Rate 57.9, Calcium Level 9.3 CBC/BMP Laboratory Tests 03/08/20 05:54 Microbiology Microbiology 03/07/20 Respiratory Virus Panel (PCR) (CHRISTY) - Final, Complete Discharge Medications Scheduled Ascorbic Acid (Ascorbic Acid) 500 Mg Tab, 500 MG PO DAILY, (Reported) Calcium Polycarbophil (Fibercon) 625 Mg Tab, 625 MG PO DAILY, (Reported) Cholecalciferol (Vitamin D3) (Vitamin D3) 1,000 Unit Tablet, 2,000 UNITS PO DAILY, (Reported) Cyanocobalamin (Vitamin B-12) (Vitamin B-12) 1,000 Mcg Cap, 1,000 MCG PO DAILY, (Reported) Digoxin (Digoxin) 250 Mcg Tablet, 250 MCG PO DAILY, (Reported) Etanercept (Enbrel) 50 Mg/1 Ml Syringe, 50 MG SC Q7D, (Reported) TAKES ON SUNDAY Ezetimibe (Ezetimibe) 10 Mg Tablet, 10 MG PO QHS Folic Acid (Folic Acid) 800 Mcg Cap, 800 MCG PO BID, (Reported) Lisinopril (Lisinopril) 5 Mg Tablet, 7.5 MG PO DAILY, (Reported) Magnesium Oxide (Magnesium) 400 Mg Cap, 400 MG PO DAILY, (Reported) Methotrexate Sodium (Methotrexate) 2.5 Mg Tab, 20 MG PO 1XWK, (Reported) SATURDAYS Omeprazole (Omeprazole) 20 Mg Cap, 20 MG PO QHS, (Reported) Pilocarpine HCl (Pilocarpine HCl) 1% 15ML Drops, 1 DROP OD QPM, (Reported) Prednisone (Prednisone) 5 Mg Tablet, 20 MG PO DAILY You should see PCP in order to titrate prednisone down after 2 weeks Tamsulosin HCl (Flomax) 0.4 Mg Capsule, 0.4 MG PO DAILY, (Reported) Warfarin Sodium (Warfarin Sodium) 2.5 Mg Tab, 2.5 MG PO 6XWK, (Reported) SUN,,SUN,SAT,SUN,MON Warfarin Sodium (Warfarin Sodium) 2.5 Mg Tab, 5 MG PO 1XWK, (Reported) SUNDAY Scheduled PRN Oxycodone HCl/Acetaminophen (Oxycodone-Acetaminophen 5-325) 1 Each Tablet, 1 TAB PO TID PRN for pain, (Reported) Allergies Coded Allergies: codeine (Verified Allergy, Unknown, sensitivity, 01/31/19) metoprolol (Verified Allergy, Unknown, 01/31/19) psyllium (Verified Allergy, Unknown, 01/31/19) amlodipine (Verified Adverse Reaction, Severe, "cant see/think", 01/31/19) Qipokbu-Nun-Psn Reductase Inhibitor (Verified Adverse Reaction, Intermediate, feels very bad, 01/31/19) LACY SARABIA DO Mar 08, 2020 13:06
[2020-03-09] MEDS ORDERED: WARFARIN SOD 5MG TAB PO SCH (17:00)
[2020-03-12] MEDS ORDERED: ENTER DRUG NAME HERE (PATIENT'S OWN MED) SC SCH (09:00)
[2020-03-13] MEDS ORDERED: METHOTREXATE 2.5 MG TAB (J8610 PER 2.5MG) PO SCH (09:00)
[2020-03-13] MEDS ORDERED: WARFARIN SOD 2.5MG TAB PO SCH (17:00)
[2020-03-22] MEDS ORDERED: PRED10TA2 PO (11:45)
== END 2020-03-08 12:17 | disposition home health service (06) | DRG 546 ==
LOC: M ED 21:42 → M ED INP 03-07 00:34 → ENRESERV 03-07 00:59 → M MSPAV 03-07 03:13
PROVIDERS: ADMIT Internal Medicine; ATTEND Internal Medicine
DX: M35.3 Polymyalgia rheumatica (principal); I48.20 Chronic atrial fibrillation, unspecified; R53.1 Weakness; I95.1 Orthostatic hypotension; E86.0 Dehydration; M45.9 Ankylosing spondylitis of unspecified sites in spine; I10 Essential (primary) hypertension; K21.9 Gastro-esophageal reflux disease without esophagitis; Z95.2 Presence of prosthetic heart valve; Z79.52 Long term (current) use of systemic steroids; Z85.46 Personal history of malignant neoplasm of prostate; Z86.711 Personal history of pulmonary embolism; Z86.718 Personal history of other venous thrombosis and embolism; E78.5 Hyperlipidemia, unspecified; Z79.899 Other long term (current) drug therapy; Z88.5 Allergy status to narcotic agent; Z88.8 Allergy status to other drugs, medicaments and biological substances; M19.90 Unspecified osteoarthritis, unspecified site; Z95.0 Presence of cardiac pacemaker

== ENCOUNTER → 2020-03-19 | Outpatient (CLI) | payer MEDICARE, BC ==
[~2020-03-19] MED LIST changes: +D31000TA2 PO; +DIGO0.253 PO; +EZET10TA21 PO; +LISI-542 PO; +PRED10TA2 PO
--- NOTE | 2020-03-29 16:58 | REP ---
CHEST X-RAY: 2-VIEWS HISTORY: Kidney calculus. COMPARISON: Chest x-ray 03/06/2020. FINDINGS: A bipolar pacemaker remains in place in the right heart via the left side. The lungs are well-inflated and clear. The pleural angles are sharp. There is extensive coronary artery vascular calcification versus stent material visible. The aorta is slightly tortuous and calcific. No acute bony abnormality. IMPRESSION: Pacemaker in the heart via the left side. Otherwise, no acute disease. Coronary artery vascular calcification. MTDD
== END ==
LOC: M ADAMS 13:23
PROVIDERS: ATTEND Urology
DX: N20.2 Calculus of kidney with calculus of ureter (principal); Z95.0 Presence of cardiac pacemaker

== ENCOUNTER → 2020-03-19 | Outpatient (CLI) | payer MEDICARE, BC ==
[2020-03-19 17:00] LABS: APPEARANCE, URINE CLEAR (CLEAR); BACTERIA, URINE AUTO NEGATIVE (NEGATIVE); BILIRUBIN, URINE AUTO NEGATIVE (NEGATIVE); BLOOD, URINE BLOOD 2+ (NEGATIVE); COLOR, URINE YELLOW (YELLOW); GLUCOSE, URINE (UA) AUTO NEGATIVE (NEGATIVE); KETONE, URINE AUTO NEGATIVE (NEGATIVE); LEUKOCYTE ESTERASE, URINE AUTO NEGATIVE (NEGATIVE); NITRITE, URINE AUTO NEGATIVE (NEGATIVE); PROTEIN, URINE AUTO NEGATIVE (NEGATIVE); RBC, URINE AUTO 30 /HPF (0-3); SPECIFIC GRAVITY URINE AUTO 1.015 (1.002-1.035); SQUAMOUS EPITHELIAL CELL UR AU 0 /HPF (0-6); UROBILINOGEN, URINE AUTO 0.2 mg/dL (0.0-2.0); WBC, URINE AUTO 5 /HPF (0-3)
[2020-03-19 17:04] LABS: INR 2.04; PROTHROMBIN TIME 23.5 SECONDS (12.5-14.3)
[2020-03-19 17:05] LABS: PARTIAL THROMBOPLASTIN TIME 28.7 SECONDS (24.2-38.5)
[2020-03-19 17:14] LABS: HEMATOCRIT 39.8 % (42.0-52.0); HEMOGLOBIN 12.9 g/dl (13.5-17.5); MEAN CORPUSCULAR HEMOGLOBIN 31.5 pg (27.0-33.0); MEAN CORPUSCULAR HGB CONC 32.4 g/dl (32.0-36.5); MEAN CORPUSCULAR VOLUME 97.3 fl (80.0-96.0); PLATELET COUNT, AUTOMATED 310 10^3/uL (150-450); RED BLOOD COUNT 4.09 10^6/uL (4.30-6.10); WHITE BLOOD COUNT 12.5 10^3/uL (4.0-10.0)
[2020-03-19 17:22] LABS: BLOOD UREA NITROGEN 28 MG/DL (7-18); CALCIUM LEVEL 9.7 MG/DL (8.8-10.2); CARBON DIOXIDE LEVEL 27 MEQ/L (21-32); CHLORIDE LEVEL 106 MEQ/L (98-107); CREATININE FOR GFR 1.06 MG/DL (0.70-1.30); GLOMERULAR FILTRATION RATE > 60.0 (>35); GLUCOSE, FASTING 172 MG/DL (70-100); POTASSIUM SERUM 4.7 MEQ/L (3.5-5.1); SODIUM LEVEL 140 MEQ/L (136-145)
== END ==
LOC: M LABDRWAD 13:29
PROVIDERS: ATTEND Urology
DX: N20.2 Calculus of kidney with calculus of ureter (principal)

== ENCOUNTER → 2020-03-24 | Outpatient (CLI) | payer MEDICARE, BC | LOC: M LABSMTC 11:13 | PROVIDERS: ATTEND Anesthesiology | DX: Z01.812 Encounter for preprocedural laboratory examination (principal); Z20.828 Contact with and (suspected) exposure to other viral communicable diseases | CPT/HCPCS: C9803; U0003 ==

== ENCOUNTER 2020-03-29 09:22 | Day surgery (SDC) | payer MEDICARE, BC ==
[~2020-03-29] VITALS: Ht 175.3 cm; Wt 81.6 kg
[~2020-03-29 09:22] MED LIST changes: +LIDOCAINE 1% MDV 20ML VIAL SQ PRN; +LIDOCAINE 2% 100MG/5ML SDV (FOR ANES.) As Ordered ONE; +LR 1,000 ML IV ONE; +ONDANSETRON 4MG/2ML VIAL As Ordered ONE; +ceFAZolin SOD 2 GM in IV 1 EA IV ONE; +dexameTHASONE 4 MG/ML 1ML VIAL (J1100 PER 1MG) As Ordered ONE; +fentaNYL 100 MCG/2 ML INJECTION (J3010) As Ordered ONE; +propofoL 200 MG/20 ML VIAL As Ordered ONE
[2020-03-29] MEDS ORDERED: CONRAY-60 60% 50ML VIAL (Q9961) As Ordered ONE (10:12)
[2020-03-29 10:16] LABS: INR 1.45; PROTHROMBIN TIME 17.9 SECONDS (12.5-14.3)
[2020-03-29] MEDS ORDERED: ONDANSETRON 4MG/2ML VIAL IV PRN (12:00)
[2020-03-29] MEDS ORDERED: fentaNYL 100 MCG/2 ML INJECTION (J3010) IV PRN (12:00)
[2020-03-29] MEDS ORDERED: oxyCODONE 5MG TAB PO PRN (12:00)
[2020-03-29] MEDS ORDERED: ACETAMINOPHEN TAB 650MG DOSE (2X325MG) PO PRN (12:00)
[2020-03-29] MEDS ORDERED: HYDROMORPHONE HCL 0.5 MG/ 0.5 ML SYRINGE (J1170 PER 1) IV PRN (12:00)
[2020-03-29] MEDS ORDERED: LR 1,000 ML IV SCH (12:00)
[2020-03-29 13:05] VITALS: BP 164/74
--- NOTE | 2020-03-30 09:19 | RO ---
DATE OF OPERATION: March 29, 2020 PRE-PROCEDURE DIAGNOSIS: Left kidney and ureteral stones. POST-PROCEDURE DIAGNOSIS: Left kidney and ureteral stones. PROCEDURES: * Cystoscopy. * Left ureteroscopy with basket extraction of stones. * Left retrograde pyelogram with intraoperative interpretative images. * Left ureteral stent exchange. SURGEON: Eugene Basurto MD. MANUFACTURING SR ENGINEER: None. ANESTHESIA: General. OPERATIVE INDICATIONS: This is an 84-year-old male who was found to have an obstructing 4-5 mm distal left ureteral stone, as well as a smaller stone inside the left kidney. He was brought to the operating room today for treatment. DESCRIPTION OF PROCEDURE: The patient was brought to the operating room and general anesthesia was induced. Prophylactic antibiotics were infused. He was then placed in the dorsal lithotomy position, prepped, and draped in the usual sterile fashion. At this point, a rigid cystoscope was inserted into the urethral meatus and advanced into the bladder. Of note, the patient's left ureteral orifice was ectopic and appeared to be coming from the dome of the bladder. It appeared that he had a previous left ureteral reimplantation. At this point, a guidewire was advanced up the left collecting system. I went up the left collecting system with a short semi-rigid ureteroscope and within the distal ureter, a 4-mm stone was seen. The stone was grabbed with a basket and removed. I advanced the ureteral access sheath up the left collecting system. I went up the left collecting system with a flexible ureteroscope and examined the left kidney thoroughly. Within one of the calices, an approximately 3-4 mm stone was seen. This stone was grabbed with a basket and removed. No other stones were seen. A left retrograde pyelogram was performed and was notable for moderate left hydronephrosis with no extravasation. I then withdrew the ureteroscope along with the access sheath and no additional stones were seen. I then utilized the guidewire to advance a 6-Haitian x 22-32 cm JJ ureteral stent into the left collecting system. The wire was removed and there were adequate curls of the stent in the left renal pelvis and in the bladder. The bladder was then emptied of all fluid. This marked the conclusion of the procedure. The patient was then taken out of the dorsal lithotomy position, awakened from anesthesia, and transferred to the recovery room in stable condition. ESTIMATED BLOOD LOSS: 5 mL. COMPLICATIONS: None. SPECIMEN: Kidney stone fragments. PLAN: The patient will follow up in the Urology Clinic in a few weeks for stent removal. DOLLY
--- NOTE | 2020-04-01 09:35 | REP ---
RETROGRADE PYELOGRAM CLINICAL: Left ureteral stent placement. TECHNIQUE: Intraoperative fluoroscopic imaging using portable C-arm technique. FINDINGS: Saved images demonstrate grade 2 left-sided hydronephrosis with satisfactory left ureteral stent placement. TOTAL FLUROSCOPY TIME: 12 seconds. IMPRESSION: Satisfactory left ureteral stent placement. MTDD
[2020-04-07 19:08] LABS: CA Oxalate Dihy 20 % (.); Ca Ox Monohydrate 80 % (.); Size 5x6 mm (.)
== END 2020-03-29 13:11 | disposition home or self-care (01) ==
LOC: M SDC 09:22
PROVIDERS: ATTEND Urology
DX: N20.2 Calculus of kidney with calculus of ureter (principal); I10 Essential (primary) hypertension; E78.5 Hyperlipidemia, unspecified; I25.10 Atherosclerotic heart disease of native coronary artery without angina pectoris; M35.3 Polymyalgia rheumatica; N40.0 Benign prostatic hyperplasia without lower urinary tract symptoms; Z79.01 Long term (current) use of anticoagulants; Z86.711 Personal history of pulmonary embolism; Z86.73 Personal history of transient ischemic attack (TIA), and cerebral infarction without residual deficits; Z92.21 Personal history of antineoplastic chemotherapy; Z85.46 Personal history of malignant neoplasm of prostate; M81.0 Age-related osteoporosis without current pathological fracture; I73.9 Peripheral vascular disease, unspecified; Z98.61 Coronary angioplasty status; Z88.5 Allergy status to narcotic agent; Z88.8 Allergy status to other drugs, medicaments and biological substances; R73.03 Prediabetes
CPT/HCPCS: 36415; 52332; 52352; 74420; 82365; 85610; 88300; C1769; C1894; C2617; J0690; J1100; J2405; J3010; Q9961

== ENCOUNTER 2020-05-31 00:47 | Emergency (ER) | payer MEDICARE, BC ==
[~2020-05-31] VITALS: Ht 175.3 cm; Wt 81.8 kg
[~2020-05-31 00:47] MED LIST changes: -LIDOCAINE 1% MDV 20ML VIAL SQ PRN; -LIDOCAINE 2% 100MG/5ML SDV (FOR ANES.) As Ordered ONE; -LR 1,000 ML IV ONE; -ONDANSETRON 4MG/2ML VIAL As Ordered ONE; -ceFAZolin SOD 2 GM in IV 1 EA IV ONE; -dexameTHASONE 4 MG/ML 1ML VIAL (J1100 PER 1MG) As Ordered ONE; -fentaNYL 100 MCG/2 ML INJECTION (J3010) As Ordered ONE; -propofoL 200 MG/20 ML VIAL As Ordered ONE
--- NOTE | 2020-05-31 02:15 | REPVR ---
PROCEDURE INFORMATION: Exam: XR Chest, 1 View Exam date and time: 05/31/2020 1:55 AM Age: 84 years old Clinical indication: Chest pain; Type not specified TECHNIQUE: Imaging protocol: XR of the chest Views: 1 view. COMPARISON: DX CHEST 2 VIEW 03/19/2020 1:13 PM FINDINGS: Tubes, catheters and devices: A pacemaker from the left is again noted. Lungs: There is decreased inflation of the lungs. Pleural space: Unremarkable. No pleural effusion. No pneumothorax. Heart/Mediastinum: Unremarkable. No cardiomegaly. Bones/joints: Unremarkable. IMPRESSION: Essentially stable poor inspiratory chest since 03/19/2020. No acute interval process is identified. Electronically signed by: Jamshid Carreon On 05/31/2020 02:15:11 AM
[2020-05-31 02:20] LABS: BASO % 0.6 % (0.0-1.0); EOS % 0.2 % (0.0-3.0); HEMATOCRIT 42.8 % (42.0-52.0); HEMOGLOBIN 13.6 g/dl (13.5-17.5); LYMPH % 14.8 % (24.0-44.0); MEAN CORPUSCULAR HEMOGLOBIN 30.2 pg (27.0-33.0); MEAN CORPUSCULAR HGB CONC 31.8 g/dl (32.0-36.5); MEAN CORPUSCULAR VOLUME 95.1 fl (80.0-96.0); MONO % 7.6 % (0.0-5.0); NEUTROPHILS # 6.8 10^3/uL (1.5-8.5); NEUTROPHILS % 76.1 % (36.0-66.0); PLATELET COUNT, AUTOMATED 292 10^3/uL (150-450); WHITE BLOOD COUNT 8.9 10^3/uL (4.0-10.0)
[2020-05-31 02:21] LABS: BASO # 0.1 10^3/uL (0.0-0.2); LYMPH # 1.3 10^3/uL (1.5-5.0); MONO # 0.7 10^3/uL (0.0-0.8)
[2020-05-31 02:36] LABS: BLOOD UREA NITROGEN 20 MG/DL (7-18); CALCIUM LEVEL 9.1 MG/DL (8.8-10.2); CARBON DIOXIDE LEVEL 28 MEQ/L (21-32); CHLORIDE LEVEL 107 MEQ/L (98-107); CK-MB VALUE MASS 2.7 NG/ML (<3.6); CPK CREATINE PHOSPHOKINASE 48 U/L (39-308); CREATININE FOR GFR 1.04 MG/DL (0.70-1.30); GLOMERULAR FILTRATION RATE > 60.0 (>35); GLUCOSE, FASTING 151 MG/DL (70-100); MB/CK RELATIVE INDEX 5.62 (< OR =4); POTASSIUM SERUM 4.7 MEQ/L (3.5-5.1); SODIUM LEVEL 141 MEQ/L (136-145); TROPONIN I 0.02 NG/ML (< 0.10)
[2020-05-31 03:45] VITALS: BP 159/83
--- NOTE | 2020-05-31 05:43 | ECGEPIP ---
[facility] - ED Test Date: 2020-05-31 Pat Name: ANGIE MAO Department: Room: - Gender: Male Insights Strategist: octavia : 1935 Requested By: TREVON Jo Order Number: [id number] Reading MD: Gil Wilhelm Measurements Intervals [place] Rate: 69 P: 143 MI: 201 QRS: -66 QRSD: 185 T: 92 QT: 435 QTc: 469 Interpretive Statements ELECTRONIC ATRIAL PACEMAKER ELECTRONIC VENTRICULAR PACEMAKER SIMILAR TO 01/31/19 Electronically Signed on 05-31-2020 5:42:59 EST by Gil Wilhelm
== END 2020-05-31 03:45 | disposition home or self-care (01) ==
LOC: M ED 00:47
DX: I10 Essential (primary) hypertension (principal); Z95.0 Presence of cardiac pacemaker; I48.91 Unspecified atrial fibrillation; I25.10 Atherosclerotic heart disease of native coronary artery without angina pectoris; Z79.01 Long term (current) use of anticoagulants; Z79.899 Other long term (current) drug therapy; Z88.8 Allergy status to other drugs, medicaments and biological substances; Z88.5 Allergy status to narcotic agent

== ENCOUNTER → 2020-10-18 | Outpatient (CLI) | payer MEDICARE, BC ==
[~2020-10-18] MED LIST changes: +GASTROGRAFIN SOLUTION 30ML (Q9963) As Ordered ONE; +ISOVUE-370 76% 100ML VIAL As Ordered ONE; -LISI-542 PO; +LISI-898 PO; +LISI10TA22 PO; -LISI10TA4 PO
--- NOTE | 2020-10-19 10:08 | REP ---
INDICATION: LT FLANK PAIN, HX PANCREATIC MASS. COMPARISON: 02/26/2020 TECHNIQUE: Standard helical technique was utilized before and after the administration of intravenous and oral bowel preparatory contrast. 100 cc Isovue 370 was given intravenously. FINDINGS: The lung bases are stable. Fibrotic and/or subsegmental atelectatic changes are present along with cylindrical bronchiectasis. The pre contrast enhanced portion of the examination shows a patent splenic densities to be within normal limits. There are no nephroliths. The contrast-enhanced portion examination shows the liver, spleen, adrenal glands, and kidneys to be within normal limits. There is intrapancreatic ductal dilatation which has increased from the prior exam. The body of the pancreas there is a parenchymal fullness representing a change from the prior exam. The abdominal aorta and para-aortic regions are within normal limits. The bowel loops and the mesenteries are within normal limits. There is no peripancreatic adenopathy. There is no free fluid or free air. Postoperative changes are again seen in the pelvis status quo. Bone window technique throughout the exam shows no significant change in appearance of the osseous structures. IMPRESSION: 1. Intrapancreatic ductal dilatation which has increased from the prior exam and now seen with fullness of the pancreatic body proximal to the ductal dilatation. Pancreatic MRI is recommended for further evaluation. 2. Other findings as described above. 3. <Electronically signed by Jerald Sauceda > 10/19/20 1009
== END ==
LOC: M RAD 17:08
PROVIDERS: ATTEND Internal Medicine
DX: R10.32 Left lower quadrant pain (principal); K86.89 Other specified diseases of pancreas
CPT/HCPCS: 74178; Q9963; Q9967